=== PATIENT | female | born 1950 | race Caucasian/White ===

== ENCOUNTER → 2018-01-08 | Outpatient (CLI) | payer OTHER, MEDICARE | END | disposition home or self-care (01) | LOC: C.MAMM 14:32 | PROVIDERS: ATTEND Family Medicine | DX: Z78.0 Asymptomatic menopausal state (principal) ==

== ENCOUNTER → 2018-02-05 | Outpatient (CLI) | payer OTHER, MEDICARE ==
--- NOTE | 2018-02-06 07:22 | MAMMOGRAPHY REPORT ---
BILATERAL DIGITAL SCREENING MAMMOGRAM TOMOSYNTHESIS WITH CAD: 02/05/2018 CLINICAL HISTORY: Routine screening. Patient has no complaints. TECHNIQUE: Breast tomosynthesis in addition to standard 2D mammography was performed. Current study was also evaluated with a Computer Aided Detection (CAD) system. COMPARISON: Comparison is made to exams dated: 11/30/2015 mammogram - [facility], mammogram, 11/09/2012 mammogram, and 02/07/2011 mammogram - [facility]. BREAST COMPOSITION: The tissue of both breasts is heterogeneously dense, which may obscure small mas ses. FINDINGS: No suspicious masses, calcifications, or areas of architectural distortion are noted in ei ther breast. There has been no significant interval change compared to prior exams. Scattered bilater al benign-appearing calcifications are not significantly changed. Bilateral breast asymmetries are s table. IMPRESSION: ACR BI-RADS CATEGORY 2: BENIGN There is no mammographic evidence of malignancy. A 1 year screening mammogram is recommended. The pa tient will receive written notification of the results. Approximately 10% of breast cancers are not detected with mammography. A negative mammographic report should not delay biopsy if a clinically suggestive mass is present. Hilda Castillo M.D. ah/:02/05/2018 15:26:04 Senior Boiler Operator: Adriana LEÓN(Alejandra)([place])([place]), [facility] letter sent: Normal 1/2 BI-RADS Code: ACR BI-RADS Category 2: Benign
== END | disposition home or self-care (01) ==
LOC: C.MAMM 14:46
PROVIDERS: ATTEND Family Medicine
DX: Z12.31 Encounter for screening mammogram for malignant neoplasm of breast (principal)

== ENCOUNTER 2021-08-10 10:32 | Inpatient (IN) ==
--- NOTE | 2021-08-10 10:56 | Emergency Department Note ---
Impression & Plan Pulmonary edema, Hypoxia, Abnormal EKG ED Provider Note NAME: RADHA CASTELLANOS AGE: 70 SEX: F : 1950 ARRIVES VIA: Ambulance INFORMANT: Patient, EMS personnel ED PROVIDER(S): Desmond Osorio DO CHIEF COMPLAINT: shortness of breath HPI: the patient is a 70-year-old female who presented to the emergency department for an evaluation of shortness of breath. The patient is had worsening symptoms over the course the last eight months. She sometimes has a nonproductive cough. The shortness of breath is worsened with exertion. She denies having any orthopnea. She does note some slight swelling to her legs but this is not new. She denies having any chest pain. The patient is had no fever. She is fully immunized against COVID-19. She had a routine follow-up with her primary care physician today. She was telling her primary care physician about the shortness of breath. She was referred directly to the emergency department via ambulance for further evaluation. The patient was noted to have severe hypoxia prior to arrival. She was started on supplemental oxygen. She is had no fever. She is had no similar symptoms in the past. She does not currently use tobacco products. ROS: See above HPI for pertinent positives & negatives. A total of 10 systems reviewed and were otherwise negative. PAST MEDICAL HISTORY: See Below PAST SURGICAL HISTORY: See Below FAMILY HISTORY: See Below SOCIAL HISTORY: See Below HOME MEDICATIONS: See Below ALLERGIES: See Below VITALS: See Below PHYSICAL EXAMINATION: GENERAL: Patient is awake alert in no acute distress patient is resting comfortably and showing no signs of anxiety EYES: The conjunctivae are clear. The pupils are round and reactive. EARS, NOSE, MOUTH AND THROAT: The nose is without any evidence of any deformity. Mucous membranes are moist. Tongue is midline. NECK: The neck is nontender and supple. RESPIRATORY: diminished breath sounds are noted throughout. Rails were noted in all lung dillard. There was mild conversational dyspnea appreciated. CARDIOVASCULAR: Regular rate and rhythm noted there no murmurs rubs or gallops normal S1 normal S2. GASTROINTESTINAL: The abdomen is soft. Abdomen is nontender. MUSCULOSKELETAL/EXTREMITIES: There is no evidence of gross deformity full range of motion is noted in the hips and shoulders. SKIN: There is no obvious evidence of any rash. There are no petechiae, pallor or cyanosis noted. NEUROLOGIC: Patient is awake alert and oriented x3 strength is symmetric patellar reflexes are 2+ bilaterally MEDICAL DECISION MAKING: the patient is a 70-year-old female who presented to the emergency department for an evaluation of difficulty breathing. The patient has had exertional dyspnea over the course of the last eight months. She went to see her family doctor today for routine visit and was found to have significant hypoxia. The patient was relatively well appearing. EKG showed nonspecific abnormalities. Her cardiac biomarkers were elevated BMP were both elevated. Chest x-ray appear to be consistent with pulmonary edema. I discussed the patient's laboratory and radiographic studies with her. I also discussed her case with the on-call [facility]. They did recommend a CT of the chest to rule out venous pulmonary embolic disease. She also has an echo pending. Cardiology will also be consulted. Triage Nursing notes reviewed. Prior medical records reviewed Vital Signs: reviewed and remarkable for hypoxia and hypertension. Differential diagnosis: Reactive airway disease, pneumonia, pneumothorax, COPD, CHF, infections, cardiac ischemia, pulmonary embolism, musculoskeletal, gastrointestinal, as well as other pathologies. ER treatment provided: See below Diagnostics interpreted by me: ECG: EKG was obtained in the emergency department. My interpretation is sinus tachycardia 104 bpm. There was no activity. Diffuse ST depressions were noted. Incomplete right bundle branch block pattern was also appreciated. No previous duration was available. Cardiac Monitoring: An order was placed for continuous cardiac monitoring. The monitor shows a rate of 99 bpm with sinus rhythm. Laboratory studies: As stated above and show below. Imaging studies: See below Consultation(s): I discussed this case with the on-call [facility], Dr. Clark. They have agreed to evaluate the patient in the emergency department for further management and disposition. Past Med/Surg History Medical History (Updated 08/10/21 @ 15:52 by Desmond Osorio DO) Acid reflux Dyslipidemia Hypertension Panic disorder T2DM (type 2 diabetes mellitus) Surgical History S/P cholecystectomy S/P tonsillectomy Family History Mother Breast cancer Grandfather (Maternal) Myocardial infarction Denies family history of Ovarian cancer Prostate cancer Lung cancer Colorectal cancer Social History (Updated 08/10/21 @ 10:54 by Desmond Osorio DO) Smoking Status: Former smoker Age Started Using Tobacco: 22; Age Quit Using Tobacco: 24; Second Hand Exposure: No; Hx Alcohol Use: Yes Alcohol type: beer Alcohol Intake Frequency: 2-4 x/Month Hx Substance Use: No Preferred Language: Yakut Communication Ability: Effective Visual Impairment: No Limitations Hearing Ability: Normal Beliefs That Will Affect Care: None marital status: / Current Living Situation: Alone current occupational status: employed 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 Feels Safe at Home: Yes Childhood Exposure to Second-Hand Smoke: No Diet Comment: regular caffeine: Yes (2 cups coffee / half caffeine) Dental Care, Regularly: Yes Physical Activity Frequency: 3-4 Times per Week Physical Activity Frequency Comment: walking Seatbelt Use: always Sunscreen Use: Yes Allergies Allergies Allergy/AdvReac Type Severity Reaction Status Date / Time epinephrine AdvReac Rash Verified 08/10/21 14:38 Penicillins AdvReac Fever Verified 08/10/21 14:38 Sulfa (Sulfonamide AdvReac Rash Verified 08/10/21 14:38 Antibiotics) Codeine SULFATE AdvReac NIGHTMARES Uncoded 08/10/21 14:38 Home Meds Home Medications Medication Instructions Recorded Confirmed atorvastatin 20 mg tablet 20 mg PO QPM 08/10/21 08/10/21 hydrochlorothiazide 12.5 mg capsule 12.5 mg PO QPM 08/10/21 08/10/21 losartan 50 mg tablet 50 mg PO QPM 08/10/21 08/10/21 omeprazole 20 mg capsule,delayed 20 mg PO QPM 08/10/21 08/10/21 release paroxetine HCl 20 mg tablet 20 mg PO QPM 08/10/21 08/10/21 Results & Data (ED) Vital Signs Vital Signs - 24 hr 08/10/21 10:42 08/10/21 10:46 08/10/21 11:37 Pulse Rate 108 H 99 H Pulse Rhythm Regular Respiratory Rate 28 H 20 Respiratory Effort / Characteristics Spontaneous Retracting Spontaneous Respiratory Depth Shallow Respiratory Pattern Tachypnea Tachypnea Blood Pressure 140/107 H Blood Pressure Mean 118 Pulse Oximetry 72 L 96 Oxygen Delivery Method Room Air Room Air Nasal Cannula Oxygen Flow Rate 4 Sepsis Recent Fever Within 48 Hours No Sepsis New/Unexplained Change in Mental Status N/A Sepsis Action Taken by Nursing Physician Notified Home Medications Current Medication List: was personally reviewed by me Laboratory Data Attestation: I reviewed the patient's lab results. Result diagrams: 08/10/21 11:53 08/10/21 11:53 Lab Results 08/10/21 08/10/21 08/10/21 Range/Units 10:59 10:59 11:53 WBC 9.62 (4.8-10.8) K/uL RBC 4.96 (4.2-5.4) M/uL Hgb 15.3 (12.0-16.0) g/dL Hct 45.8 (37-47) % MCV 92.3 (80-100) fL MCH 30.8 (25-34) pg MCHC 33.4 (32-36) g/dL RDW Std Deviation 54.4 H (36.4-46.3) fL RDW Coeff of Raz 16.3 H (11.5-14.5) % Plt Count 241 (130-400) K/uL MPV 10.2 (7.4-10.4) fL Immature Gran % (Auto) 0.1 % Neut % (Auto) 78.0 % Lymph % (Auto) 12.1 % [place] % (Auto) 8.8 % Eos % (Auto) 0.9 % Baso % (Auto) 0.1 % Neut # (Auto) 7.50 H (1.4-6.5) K/uL Lymph # (Auto) 1.16 L (1.2-3.4) K/uL [place] # (Auto) 0.85 H (0.11-0.59) K/uL Eos # (Auto) 0.09 (0-0.5) K/uL Baso # (Auto) 0.01 (0-0.2) K/uL Immature Gran # (Auto) 0.01 (0.00-0.02) K/uL ESR (0-30) mm/hr PT (9.0-12.0) Seconds INR (0.9-1.1) APTT (21.0-31.0) Seconds PTT Ratio D-Dimer (0-500) ug/L FEU Sodium (136-145) mmol/L Potassium (3.5-5.1) mmol/L Chloride (98-107) mmol/L Carbon Dioxide (21-32) mmol/L Anion Gap (3-11) BUN (7-18) mg/dl Creatinine (0.6-1.2) mg/dl Est Cr Clr Drug Dosing ml/min Est GFR ( Amer) ml/min Est GFR (Non-Af Amer) ml/min BUN/Creatinine Ratio (10-20) Glucose (70-99) mg/dl Lactate (0.4-2.0) mmol/L Calcium (8.5-10.1) mg/dl Magnesium (1.8-2.4) mg/dl Total Bilirubin (0.2-1) mg/dl AST (15-37) U/L ALT (12-78) U/L Alkaline Phosphatase (45-117) U/L Troponin I (0-0.045) ng/ml C-Reactive Protein (0-0.29) mg/dl NT-Pro-B Natriuret Pep (0-900) pg/ml Total Protein (6.4-8.2) gm/dl Albumin (3.4-5.0) gm/dl Globulin (2.5-4.0) gm/dl Albumin/Globulin Ratio (0.9-2) Procalcitonin (0-0.5) ng/ml Adenovirus (PCR) (NotDetected) B. pertussis DNA (PCR) (NotDetected) B.parapertussis DNA PCR (NotDetected) C. pneumoniae DNA (PCR) (NotDetected) Coronavirus OC43 (PCR) (NotDetected) Coronavirus HKU1 (PCR) (NotDetected) Coronavirus 229E (PCR) (NotDetected) COVID-19 Eval Order Covid19 at [facility] SARS-CoV-2 (PCR) NEGATIVE (Negative) Coronavirus NL63 (PCR) (NotDetected) Human Metapneumovir PCR (NotDetected) Influenza Type A (PCR) (NotDetected) Influenza Type B (PCR) (NotDetected) M. pneumoniae (PCR) (NotDetected) Parainfluenza 1 (PCR) (NotDetected) Parainfluenza 2 (PCR) (NotDetected) Parainfluenza 3 (PCR) (NotDetected) Parainfluenza 4 (PCR) (NotDetected) RSV (PCR) (NotDetected) Entero/Rhino (PCR) (NotDetected) 08/10/21 08/10/21 08/10/21 Range/Units 11:53 11:53 11:53 WBC (4.8-10.8) K/uL RBC (4.2-5.4) M/uL Hgb (12.0-16.0) g/dL Hct (37-47) % MCV (80-100) fL MCH (25-34) pg MCHC (32-36) g/dL RDW Std Deviation (36.4-46.3) fL RDW Coeff of Raz (11.5-14.5) % Plt Count (130-400) K/uL MPV (7.4-10.4) fL Immature Gran % (Auto) % Neut % (Auto) % Lymph % (Auto) % [place] % (Auto) % Eos % (Auto) % Baso % (Auto) % Neut # (Auto) (1.4-6.5) K/uL Lymph # (Auto) (1.2-3.4) K/uL [place] # (Auto) (0.11-0.59) K/uL Eos # (Auto) (0-0.5) K/uL Baso # (Auto) (0-0.2) K/uL Immature Gran # (Auto) (0.00-0.02) K/uL ESR 20 (0-30) mm/hr PT 11.7 (9.0-12.0) Seconds INR 1.2 H (0.9-1.1) APTT 25.0 (21.0-31.0) Seconds PTT Ratio 1.0 D-Dimer 790 H* (0-500) ug/L FEU Sodium 140 (136-145) mmol/L Potassium 3.4 L (3.5-5.1) mmol/L Chloride 106 (98-107) mmol/L Carbon Dioxide 27 (21-32) mmol/L Anion Gap 7.0 (3-11) BUN 29 H (7-18) mg/dl Creatinine 1.34 H (0.6-1.2) mg/dl Est Cr Clr Drug Dosing 43.2 ml/min Est GFR ( Amer) 45.8 ml/min Est GFR (Non-Af Amer) 39.5 ml/min BUN/Creatinine Ratio 21.9 H (10-20) Glucose 97 (70-99) mg/dl Lactate (0.4-2.0) mmol/L Calcium 8.3 L (8.5-10.1) mg/dl Magnesium 1.3 L (1.8-2.4) mg/dl Total Bilirubin 1.1 H (0.2-1) mg/dl AST 33 (15-37) U/L ALT 42 (12-78) U/L Alkaline Phosphatase 126 H (45-117) U/L Troponin I 0.027 (0-0.045) ng/ml C-Reactive Protein 0.43 H (0-0.29) mg/dl NT-Pro-B Natriuret Pep 2427 H (0-900) pg/ml Total Protein 7.3 (6.4-8.2) gm/dl Albumin 3.2 L (3.4-5.0) gm/dl Globulin 4.1 H (2.5-4.0) gm/dl Albumin/Globulin Ratio 0.8 L (0.9-2) Procalcitonin (0-0.5) ng/ml Adenovirus (PCR) (NotDetected) B. pertussis DNA (PCR) (NotDetected) B.parapertussis DNA PCR (NotDetected) C. pneumoniae DNA (PCR) (NotDetected) Coronavirus OC43 (PCR) (NotDetected) Coronavirus HKU1 (PCR) (NotDetected) Coronavirus 229E (PCR) (NotDetected) COVID-19 Eval Order SARS-CoV-2 (PCR) (Negative) Coronavirus NL63 (PCR) (NotDetected) Human Metapneumovir PCR (NotDetected) Influenza Type A (PCR) (NotDetected) Influenza Type B (PCR) (NotDetected) M. pneumoniae (PCR) (NotDetected) Parainfluenza 1 (PCR) (NotDetected) Parainfluenza 2 (PCR) (NotDetected) Parainfluenza 3 (PCR) (NotDetected) Parainfluenza 4 (PCR) (NotDetected) RSV (PCR) (NotDetected) Entero/Rhino (PCR) (NotDetected) 08/10/21 08/10/21 08/10/21 Range/Units 12:03 12:03 14:08 WBC (4.8-10.8) K/uL RBC (4.2-5.4) M/uL Hgb (12.0-16.0) g/dL Hct (37-47) % MCV (80-100) fL MCH (25-34) pg MCHC (32-36) g/dL RDW Std Deviation (36.4-46.3) fL RDW Coeff of Raz (11.5-14.5) % Plt Count (130-400) K/uL MPV (7.4-10.4) fL Immature Gran % (Auto) % Neut % (Auto) % Lymph % (Auto) % [place] % (Auto) % Eos % (Auto) % Baso % (Auto) % Neut # (Auto) (1.4-6.5) K/uL Lymph # (Auto) (1.2-3.4) K/uL [place] # (Auto) (0.11-0.59) K/uL Eos # (Auto) (0-0.5) K/uL Baso # (Auto) (0-0.2) K/uL Immature Gran # (Auto) (0.00-0.02) K/uL ESR (0-30) mm/hr PT (9.0-12.0) Seconds INR (0.9-1.1) APTT (21.0-31.0) Seconds PTT Ratio D-Dimer (0-500) ug/L FEU Sodium (136-145) mmol/L Potassium (3.5-5.1) mmol/L Chloride (98-107) mmol/L Carbon Dioxide (21-32) mmol/L Anion Gap (3-11) BUN (7-18) mg/dl Creatinine (0.6-1.2) mg/dl Est Cr Clr Drug Dosing ml/min Est GFR ( Amer) ml/min Est GFR (Non-Af Amer) ml/min BUN/Creatinine Ratio (10-20) Glucose (70-99) mg/dl Lactate 1.7 (0.4-2.0) mmol/L Calcium (8.5-10.1) mg/dl Magnesium (1.8-2.4) mg/dl Total Bilirubin (0.2-1) mg/dl AST (15-37) U/L ALT (12-78) U/L Alkaline Phosphatase (45-117) U/L Troponin I (0-0.045) ng/ml C-Reactive Protein (0-0.29) mg/dl NT-Pro-B Natriuret Pep (0-900) pg/ml Total Protein (6.4-8.2) gm/dl Albumin (3.4-5.0) gm/dl Globulin (2.5-4.0) gm/dl Albumin/Globulin Ratio (0.9-2) Procalcitonin < 0.05 (0-0.5) ng/ml Adenovirus (PCR) (NotDetected) B. pertussis DNA (PCR) (NotDetected) B.parapertussis DNA PCR (NotDetected) C. pneumoniae DNA (PCR) (NotDetected) Coronavirus OC43 (PCR) (NotDetected) Coronavirus HKU1 (PCR) (NotDetected) Coronavirus 229E (PCR) (NotDetected) COVID-19 Eval Order RESPNP at [facility] SARS-CoV-2 (PCR) (Negative) Coronavirus NL63 (PCR) (NotDetected) Human Metapneumovir PCR (NotDetected) Influenza Type A (PCR) (NotDetected) Influenza Type B (PCR) (NotDetected) M. pneumoniae (PCR) (NotDetected) Parainfluenza 1 (PCR) (NotDetected) Parainfluenza 2 (PCR) (NotDetected) Parainfluenza 3 (PCR) (NotDetected) Parainfluenza 4 (PCR) (NotDetected) RSV (PCR) (NotDetected) Entero/Rhino (PCR) (NotDetected) 08/10/21 Range/Units 14:08 WBC (4.8-10.8) K/uL RBC (4.2-5.4) M/uL Hgb (12.0-16.0) g/dL Hct (37-47) % MCV (80-100) fL MCH (25-34) pg MCHC (32-36) g/dL RDW Std Deviation (36.4-46.3) fL RDW Coeff of Raz (11.5-14.5) % Plt Count (130-400) K/uL MPV (7.4-10.4) fL Immature Gran % (Auto) % Neut % (Auto) % Lymph % (Auto) % [place] % (Auto) % Eos % (Auto) % Baso % (Auto) % Neut # (Auto) (1.4-6.5) K/uL Lymph # (Auto) (1.2-3.4) K/uL [place] # (Auto) (0.11-0.59) K/uL Eos # (Auto) (0-0.5) K/uL Baso # (Auto) (0-0.2) K/uL Immature Gran # (Auto) (0.00-0.02) K/uL ESR (0-30) mm/hr PT (9.0-12.0) Seconds INR (0.9-1.1) APTT (21.0-31.0) Seconds PTT Ratio D-Dimer (0-500) ug/L FEU Sodium (136-145) mmol/L Potassium (3.5-5.1) mmol/L Chloride (98-107) mmol/L Carbon Dioxide (21-32) mmol/L Anion Gap (3-11) BUN (7-18) mg/dl Creatinine (0.6-1.2) mg/dl Est Cr Clr Drug Dosing ml/min Est GFR ( Amer) ml/min Est GFR (Non-Af Amer) ml/min BUN/Creatinine Ratio (10-20) Glucose (70-99) mg/dl Lactate (0.4-2.0) mmol/L Calcium (8.5-10.1) mg/dl Magnesium (1.8-2.4) mg/dl Total Bilirubin (0.2-1) mg/dl AST (15-37) U/L ALT (12-78) U/L Alkaline Phosphatase (45-117) U/L Troponin I (0-0.045) ng/ml C-Reactive Protein (0-0.29) mg/dl NT-Pro-B Natriuret Pep (0-900) pg/ml Total Protein (6.4-8.2) gm/dl Albumin (3.4-5.0) gm/dl Globulin (2.5-4.0) gm/dl Albumin/Globulin Ratio (0.9-2) Procalcitonin (0-0.5) ng/ml Adenovirus (PCR) Not Detected (NotDetected) B. pertussis DNA (PCR) Not Detected (NotDetected) B.parapertussis DNA PCR Not Detected (NotDetected) C. pneumoniae DNA (PCR) Not Detected (NotDetected) Coronavirus OC43 (PCR) Not Detected (NotDetected) Coronavirus HKU1 (PCR) Not Detected (NotDetected) Coronavirus 229E (PCR) Not Detected (NotDetected) COVID-19 Eval Order SARS-CoV-2 (PCR) Not Detected (Negative) Coronavirus NL63 (PCR) Not Detected (NotDetected) Human Metapneumovir PCR Not Detected (NotDetected) Influenza Type A (PCR) Not Detected (NotDetected) Influenza Type B (PCR) Not Detected (NotDetected) M. pneumoniae (PCR) Not Detected (NotDetected) Parainfluenza 1 (PCR) Not Detected (NotDetected) Parainfluenza 2 (PCR) Not Detected (NotDetected) Parainfluenza 3 (PCR) Not Detected (NotDetected) Parainfluenza 4 (PCR) Not Detected (NotDetected) RSV (PCR) Not Detected (NotDetected) Entero/Rhino (PCR) Not Detected (NotDetected) Administered Medications Magnesium Sulfate/Dextrose (Magnesium Sulfate / D5w) 1 gm in 100 mls @ 50 mls/hr IV ONE ONE Stop: 08/10/21 16:32 Last Admin: 08/10/21 15:06 Dose: 50 mls/hr Documented by: [id number] Discontinued Medications Furosemide (Furosemide 40 Mg/4 Ml Vial) 20 mg IV NOW STA Stop: 08/10/21 14:34 Last Admin: 08/10/21 15:06 Dose: 20 mg Documented by: [id number] Ioversol (Optiray 320 125ml) 120 ml IV ONCE ONE Stop: 08/10/21 13:19 Last Admin: 08/10/21 13:18 Dose: 120 ml Documented by: [id number] Magnesium Oxide (Magnesium Oxide 400 Mg Tab) 400 mg PO ONE STA Stop: 08/10/21 14:34 Last Admin: 08/10/21 15:05 Dose: 400 mg Documented by: [id number] Potassium Chloride (Potassium Chloride Crtab 20 Meq Tabcr) 40 meq PO NOW STA Stop: 08/10/21 14:34 Last Admin: 08/10/21 15:05 Dose: 40 meq Documented by: [id number] Imaging Data Radiologist's Impression: Chest X-Ray 08/10/21 10:40 SINGLE VIEW CHEST CLINICAL HISTORY: Sepsis. FINDINGS: An AP, portable, upright chest radiograph is obtained. No prior studies are available for comparison at the time of dictation. The heart is enlarged noting atherosclerotic calcification of the thoracic aorta. There is elevation of the right hemidiaphragm. Ill-defined airspace opacities are seen throughout both lungs. No large pleural effusion or pneumothorax is seen. The skeletal structures are osteopenic. The bony thorax is grossly intact. IMPRESSION: 1. Cardiomegaly. 2. Ill-defined airspace opacities are seen throughout both lungs and likely represent multifocal pneumonia. Pulmonary edema could appear similar and clinical correlation will be required. Radiographic follow-up to resolution is recommended. ACT 112: Negative or not required by law. Electronically signed by: Marco Jones M.D. 08/10/2021 11:08 AM Chest CTA 08/10/21 12:59 CHEST CTA for PULMONARY ARTERIES CT DOSE: 508.79 mGy.cm HISTORY: Shortness of breath. TECHNIQUE: Multiaxial CT images of the chest were performed following the int ravenous administration of contrast to evaluate the pulmonary arteries. Maximal intensity projection images were also obtained. A dose lowering technique was utilized adhering to the principles of ALARA. COMPARISON STUDY: None. FINDINGS: Normal caliber thoracic aorta with no evidence for dissection. The heart is moderately enlarged. There is a small pericardial effusion. No significant pleural effusions. Mild mediastinal bilateral hilar lymphadenopathy. Dominant right hilar lymph node measures 12 mm. There are low lung volumes with elevation of the right hemidiaphragm. Limited views of the upper abdomen demonstrate a normal liver and spleen. Prior cholecystectomy. Normal esophagus. No filling defects within the pulmonary arteries to suggest a pulmonary embolus. No fractures within the visualized osseous structures. The central airways are patent. No pneumothorax. There is diffuse interstitial thickening with scattered near diffuse groundglass airspace opacities. These demonstrate an upper lobe predominance. IMPRESSION: 1. No evidence for pulmonary embolus. 2. There is diffuse interstitial thickening with near diffuse groundglass airspace opacities demonstrating an upper lobe predominance. There is also mild mediastinal and bilateral hilar lymphadenopathy as well as moderate cardiomegaly. These findings are nonspecific but favor an acute on chronic process such as mild pulmonary edema on the background of chronic interstitial lung disease. A superimposed atypical/viral pneumonia or possibly sarcoidosis could also have a similar appearance. 3. Small pericardial effusion. ACT 112: Negative or not required by law. Electronically signed by: Rajan Liu M.D. 08/10/2021 1:59 PM Discharge Plan Visit Data Chief Complaint: Respiratory Problems Stated Complaint: SOB Hypoxia ED Provider: Desmond Osorio Discharge Problem: Pulmonary edema, Hypoxia, Abnormal EKG Patient Disposition: Admitted As Inpatient Condition: Good Forms Stand Alone Forms: [facility] Prescriptions Prescriptions: No Action Fluzone HighDose Quad 21-22 PF 240 mcg/0.7 mL syringe 0.7 ml IM ONCE Qty: 0.7 RF: 0 losartan 50 mg tablet 50 mg PO QPM RF: 0 atorvastatin 20 mg tablet 20 mg PO QPM RF: 0 paroxetine HCl 20 mg tablet 20 mg PO QPM RF: 0 hydrochlorothiazide 12.5 mg capsule 12.5 mg PO QPM RF: 0 omeprazole 20 mg capsule,delayed release(DR/EC) 20 mg PO QPM RF: 0 Referrals Referrals: Tiffanie Albarado DO [Primary Care Provider] -
--- NOTE | 2021-08-10 11:09 | XRay Report ---
SINGLE VIEW CHEST CLINICAL HISTORY: Sepsis. FINDINGS: An AP, portable, upright chest radiograph is obtained. No prior studies are available for c omparison at the time of dictation. The heart is enlarged noting atherosclerotic calcification of the thoracic aorta. There is elevation of the right hemidiaphragm. Ill-defined airspace opacities are se en throughout both lungs. No large pleural effusion or pneumothorax is seen. The skeletal structures are osteopenic. The bony thorax is grossly intact. IMPRESSION: 1. Cardiomegaly. 2. Ill-defined airspace opacities are seen throughout both lungs and likely represent multifocal pneu monia. Pulmonary edema could appear similar and clinical correlation will be required. Radiographic f ollow-up to resolution is recommended. ACT 112: Negative or not required by law. Electronically signed by: Marco Jones M.D. 08/10/2021 11:08 AM
[2021-08-10 12:11] LABS: Basophils # (auto) 0.01 K/uL (0-0.2); Basophils % (auto) 0.1 %; Eosinophils # (auto) 0.09 K/uL (0-0.5); Eosinophils % (auto) 0.9 %; Hematocrit (blood only) 45.8 % (37-47); Hemoglobin 15.3 g/dL (12.0-16.0); Immature Granulocytes # (auto) 0.01 K/uL (0.00-0.02); Immature Granulocytes % (auto) 0.1 %; Lymphocytes # (auto) 1.16 K/uL (1.2-3.4); Lymphocytes % (auto) 12.1 %; Mean Corpuscular Hemoglobin 30.8 pg (25-34); Mean Corpuscular Hgb Conc 33.4 g/dL (32-36); Mean Corpuscular Volume 92.3 fL (80-100); Mean Platelet Volume 10.2 fL (7.4-10.4); Monocytes # (auto) 0.85 K/uL (0.11-0.59); Monocytes % (auto) 8.8 %; Platelet Count 241 K/uL (130-400); RDW Coefficient of Variation 16.3 % (11.5-14.5); RDW Standard Deviation 54.4 fL (36.4-46.3); Red Blood Count 4.96 M/uL (4.2-5.4); White Blood Count 9.62 K/uL (4.8-10.8)
[2021-08-10 12:22] LABS: INR 1.2 (0.9-1.1); Prothrombin Time 11.7 Seconds (9.0-12.0)
[2021-08-10 12:24] LABS: D Dimer 790 ug/L FEU (0-500)
[2021-08-10 12:28] LABS: Albumin Level 3.2 gm/dl (3.4-5.0); BUN Creatinine Ratio 21.9 (10-20); Calcium 8.3 mg/dl (8.5-10.1); Creatinine Clr Calc Pharmacy 43.2 ml/min; Est GFR (African American) 45.8 ml/min; Est GFR (Non-African American) 39.5 ml/min; Magnesium 1.3 mg/dl (1.8-2.4); Potassium 3.4 mmol/L (3.5-5.1)
[2021-08-10 12:33] LABS: Albumin Globulin Ratio 0.8 (0.9-2); Bilirubin,Total 1.1 mg/dl (0.2-1); C Reactive Protein 0.43 mg/dl (0-0.29); Globulin 4.1 gm/dl (2.5-4.0); Total Protein 7.3 gm/dl (6.4-8.2); Troponin I 0.027 ng/ml (0-0.045)
--- NOTE | 2021-08-10 12:54 | History & Physical Report ---
Date of Service August 10, 2021 Assessment & Plan (1) Pulmonary edema: Plan: Lasix 20mg IV now Strict I&Os Daily weights TTE to assess for cardiomyopathy (2) Viral pneumonia: Plan: Suspected given recent viral illness which may have pushed underlying CHF worse. Suspect not COVID as PCR negative and low CRP, lymphocyte count > 1 would be unusual given degree of hypoxia even in vaccinated individual. Will get Biofire to assess for alternative cause however. Urine legionella Procalcitonin negative but possibly has atypical pneumonia and could consider azithromycin depending on biofire results and TTE results above. (3) Hypoxia: Plan: Aim O2 > 94% Suspect undiagnosed chronic CHF and possible viral pneumonia making her much w orse this week. (4) Acid reflux: Plan: Switch omeprazole for pantoprazole per hospital formulary (5) T2DM (type 2 diabetes mellitus): Plan: On no medication for this. HbA1C 6.9 in January. Repeat HbA1C in AM Glucose 97 ?high glycosalator (6) Dyslipidemia: Plan: Continue atorvastatin 20mg PO HS (7) Hypertension: Plan: Hold HCTZ while diuresing as above (8) Abnormal EKG: Plan: Troponin negative on admission and no acute worsening within last 24 hours ther efore no need to repeat this. Plan: VTE Prophyalxis - Lovenox 40mg SQ daily Diet - heart healthy, Low Na, Fluid restrict 1500ml Disposition - admit to med/tele Admission and Anticipated Discharge Date Admission Date: August 10, 2021 History of Present Illness Chief Complaint: Shortness of breath, hypoxia Primary Care Provider: DO Beatriz Em is a 70 year old female who presents to the ER on the advice of her PCP due to shortness of breath. She reports progressively worsening symptoms especially on exertion for the last 8 months (prior to having COVID-19 vaccine) with associated fatigue. 4 days ago she started having a diarrheal illness with nausea, no abdominal pain with associated progression of her short of breath on exertion. She denies any weight gain, orthopnea, PND, worsening leg swelling or claudication. She is a non-smoker. On visiting her PCP today she was noted to be significantly hypoxic therefore was referred to the ER for ongoing management. In the ER CXR was consistent with viral pneumonia. SARS-COV-2 PCR negative. Allergies Allergy/AdvReac Type Severity Reaction Status Date / Time epinephrine AdvReac Rash Verified 08/10/21 14:38 Penicillins AdvReac Fever Verified 08/10/21 14:38 Sulfa (Sulfonamide AdvReac Rash Verified 08/10/21 14:38 Antibiotics) Codeine SULFATE AdvReac NIGHTMARES Uncoded 08/10/21 14:38 Home Medications Medication Instructions Recorded Confirmed Type atorvastatin 20 mg tablet 20 mg PO QPM 08/10/21 08/10/21 History hydrochlorothiazide 12.5 mg capsule 12.5 mg PO QPM 08/10/21 08/10/21 History losartan 50 mg tablet 50 mg PO QPM 08/10/21 08/10/21 History omeprazole 20 mg capsule,delayed 20 mg PO QPM 08/10/21 08/10/21 History release paroxetine HCl 20 mg tablet 20 mg PO QPM 08/10/21 08/10/21 History Past Med/Surg History Medical History Acid reflux Dyslipidemia Hypertension Panic disorder T2DM (type 2 diabetes mellitus) Surgical History S/P cholecystectomy S/P tonsillectomy Family History Mother Breast cancer Grandfather (Maternal) Myocardial infarction Denies family history of Ovarian cancer Prostate cancer Lung cancer Colorectal cancer Social History Smoking Status: Never smoker Age Started Using Tobacco: 22; Age Quit Using Tobacco: 24; Second Hand Exposure: No; Hx Alcohol Use: No Hx Substance Use: No Preferred Language: Tamazight Communication Ability: Effective Visual Impairment: No Limitations Hearing Ability: Normal Beliefs That Will Affect Care: None marital status: / Current Living Situation: Alone Current Living Situation Comment: lives in home with dogs current occupational status: employed current occupation: [employer] Other Information That Helps Us Care for You: No Feels Safe at Home: Yes Safety Concerns: Feels Safe At This Time Childhood Exposure to Second-Hand Smoke: No Diet Comment: regular caffeine: Yes (2 cups coffee / half caffeine) Dental Care, Regularly: Yes Physical Activity Frequency: 3-4 Times per Week Physical Activity Frequency Comment: walking Seatbelt Use: always Sunscreen Use: Yes Assistive Devices: Glasses Review of Systems Review of Systems: All systems reviewed & are unremarkable except as noted in HPI & below Physical Exam Constitutional: WD/WN, vitals as above Eyes: PERRL, conjunctivae normal, anicteric sclerae ENMT: external ear and nose normal, oropharynx normal Respiratory: normal respiratory effort and able to speak in complete sentences; no respiratory distress, no labored breathing, no retractions, does not use accessory muscles and no cough Auscultation: + crackles (fine posteriorly throughout) Cardiovascular: Rate/Rhythm: regular rate and regular rhythm Heart Sounds: no murmur Vessels: + JVD Extremities: normal capillary refill and + pedal edema (1+ pre-tibial); no calf tenderness Gastrointestinal (Abdomen): normal bowel sounds, soft, nontender, no hepatosplenomegaly Musculoskeletal: no cyanosis or clubbing, extremities motor strength 5/5 Skin: no rashes, warm and dry Neurologic: moves all extremities and awake; not confused Psychiatric: A+Ox3, euthymic affect Lymphatic: no cervical or axillary lymphadenopathy Results & Data Results & Data ([facility]) Vital Signs (Past 12 Hours) Vital Signs Pulse Resp BP Pulse Ox 08/10/21 11:37 99 H 20 96 08/10/21 10:42 108 H 28 H 140/107 H 72 L Diagnostic Findings SINGLE VIEW CHEST CLINICAL HISTORY: Sepsis. FINDINGS: An AP, portable, upright chest radiograph is obtained. No prior studies are available for comparison at the time of dictation. The heart is enlarged noting atherosclerotic calcification of the thoracic aorta. There is elevation of the right hemidiaphragm. Ill-defined airspace opacities are seen throughout both lungs. No large pleural effusion or pneumothorax is seen. The skeletal structures are osteopenic. The bony thorax is grossly intact. IMPRESSION: 1. Cardiomegaly. 2. Ill-defined airspace opacities are seen throughout both lungs and likely represent multifocal pneumonia. Pulmonary edema could appear similar and clinical correlation will be required. Radiographic follow-up to resolution is recommended. Medications Administered ER medications given: None ECG Indication: SOB/dyspnea Rate (beats per minute): 104 Rhythm: sinus tachycardia Findings: + other (Right ventricular hypertrophy with repolarization abnormality, TW flattening) Comparison ECG Date: no prior available Code Status & VTE Plan Code Status Full VTE Prophylaxis Plan VTE Prophylaxis will be ordered: Yes PG Care Time/CCT Total # of Minutes Spent Total Time Spent with Patient: Total time spent is greater than 50% in coordination of care (as documented) at patient's floor/unit and/or counseling patient: Coding Level of Care Code 41912 Initial Inpt Care Lvl 3 Diagnoses Acid reflux K21.9 T2DM (type 2 diabetes mellitus) E11.9 Dyslipidemia E78.5 Hypertension I10 Viral pneumonia J12.9 Pulmonary edema J81.0 Chronicity: acute Hypoxia R09.02 Abnormal EKG R94.31 (1) Pulmonary edema Chronicity: acute Qualified Code(s): J81.0 - Acute pulmonary edema
[2021-08-10] MEDS ORDERED: OPTIRAY 320 125ml IV ONE (13:18)
--- NOTE | 2021-08-10 14:01 | CT Scan Report ---
CHEST CTA for PULMONARY ARTERIES CT DOSE: 508.79 mGy.cm HISTORY: Shortness of breath. TECHNIQUE: Multiaxial CT images of the chest were performed following the intravenous administration of contrast to evaluate the pulmonary arteries. Maximal intensity projection images were also obtaine d. A dose lowering technique was utilized adhering to the principles of ALARA. COMPARISON STUDY: None. FINDINGS: Normal caliber thoracic aorta with no evidence for dissection. The heart is moderately enla rged. There is a small pericardial effusion. No significant pleural effusions. Mild mediastinal bilat eral hilar lymphadenopathy. Dominant right hilar lymph node measures 12 mm. There are low lung volume s with elevation of the right hemidiaphragm. Limited views of the upper abdomen demonstrate a normal liver and spleen. Prior cholecystectomy. Normal esophagus. No filling defects within the pulmonary ar teries to suggest a pulmonary embolus. No fractures within the visualized osseous structures. The darrell tral airways are patent. No pneumothorax. There is diffuse interstitial thickening with scattered rubi r diffuse groundglass airspace opacities. These demonstrate an upper lobe predominance. IMPRESSION: 1. No evidence for pulmonary embolus. 2. There is diffuse interstitial thickening with near diffuse groundglass airspace opacities demonstr ating an upper lobe predominance. There is also mild mediastinal and bilateral hilar lymphadenopathy as well as moderate cardiomegaly. These findings are nonspecific but favor an acute on chronic proces s such as mild pulmonary edema on the background of chronic interstitial lung disease. A superimposed atypical/viral pneumonia or possibly sarcoidosis could also have a similar appearance. 3. Small pericardial effusion. ACT 112: Negative or not required by law. Electronically signed by: Rajan Liu M.D. 08/10/2021 1:59 PM
[2021-08-10] MEDS ORDERED: POTASSIUM CHLORIDE CRTAB 20 MEQ TABCR PO STA (14:33)
[2021-08-10] MEDS ORDERED: FUROSEMIDE 40 MG/4 ML VIAL IV STA (14:33)
[2021-08-10] MEDS ORDERED: MAGNESIUM OXIDE 400 MG TAB PO STA (14:33)
[2021-08-10] MEDS ORDERED: MAGNESIUM SULFATE / D5W 1 GM/100 ML BAG IV ONE ×2 (14:33→22:00)
[2021-08-10 15:43] LABS: Adenovirus PCR Not Detected (NotDetected); Bordetella parapertussis PCR Not Detected (NotDetected); Bordetella pertussis PCR Not Detected (NotDetected); Chlamydia pneumoniae PCR Not Detected (NotDetected); Coronavirus 229E PCR Not Detected (NotDetected); Coronavirus CoV-2 (COVID19)PCR Not Detected (NotDetected); Coronavirus HKU1 PCR Not Detected (NotDetected); Coronavirus NL63 PCR Not Detected (NotDetected); Coronavirus OC43PCR Not Detected (NotDetected); Human Metapneumovirus PCR Not Detected (NotDetected); Influenza A PCR Not Detected (NotDetected); Influenza B PCR Not Detected (NotDetected); Mycoplasma pneumoniae PCR Not Detected (NotDetected); Parainfluenza Virus 1 PCR Not Detected (NotDetected); Parainfluenza Virus 2 PCR Not Detected (NotDetected); Parainfluenza Virus 3 PCR Not Detected (NotDetected); Parainfluenza Virus 4 PCR Not Detected (NotDetected); Respiratory Syncytial VirusPCR Not Detected (NotDetected); Rhinovirus/Enterovirus PCR Not Detected (NotDetected)
[2021-08-10] MEDS ORDERED: ONDANSETRON INJ 2 MG/ML 2 ML VIAL IV PRN (16:14)
[2021-08-10] MEDS ORDERED: ACETAMINOPHEN 325 MG TAB PO PRN (16:14)
[2021-08-10] MEDS ORDERED: POLYETHYLENE (MIRALAX) 17 GM PACK PO PRN (16:14)
[2021-08-10 16:38] LABS: Appearance Urine Clear (Clear); Bacteria Urine Automated Negative (Negative); Bilirubin Urine Negative (Negative); Blood Urine Negative (Negative); Cast Urine Automated 0 /lpf (0-5); Color Urine Yellow; Epithelial Cell Urine Auto 0-5 /lpf (0-5); Glucose Urine UA Negative (Negative); Ketones Urine Negative (Negative); Leukocyte Esterase Urine Trace (Negative); Nitrite Urine Negative (Negative); Protein Urine Negative (Negative); RBC Urine Automated 0-4 /hpf (0-4); Specific Gravity Urine 1.022 (1.000-1.030); Urobilinogen Urine Negative (Negative); pH Urine 5.5 (4.5-7.5)
[2021-08-10] MEDS ORDERED: INFLUENZA VACCINE HIGH DOSE PF 65+ 0.7 ML SYR IM ONE (17:45)
--- NOTE | 2021-08-10 18:35 | XCELERA ---
[id number] \\[id number]
[2021-08-10] MEDS: LOSARTAN POTASSIUM 50 MG TAB PO SCH (20:17)
[2021-08-10] MEDS: PARoxetine HCL 20 MG TAB PO SCH (20:17)
[2021-08-10] MEDS: ATORVASTATIN 20 MG TAB PO SCH (20:17)
[2021-08-10] MEDS: PANTOprazole 40 MG TAB PO SCH (20:18)
[2021-08-10] MEDS ORDERED: FUROSEMIDE 20 MG in SYRINGE 0 ML IV ONE (22:00)
[2021-08-10] MEDS: ASPIRIN 81 MG ECTAB PO SCH (22:55)
--- NOTE | 2021-08-11 06:42 | Electrocardiogram Report ---
Test Reason : Blood Pressure : / mmHG Vent. Rate : 104 BPM Atrial Rate : 104 BPM P-R Int : 208 ms QRS Dur : 078 ms QT Int : 326 ms P-R-T Axes : 053 120 -37 degrees QTc Int : 428 ms Sinus tachycardia Right ventricular hypertrophy with repolarization abnormality T wave abnormality, consider inferior ischemia T wave abnormality, consider anterior ischemia Abnormal ECG No previous ECGs available Confirmed by Mark Moore ([id number]) on 08/11/2021 6:41:35 AM Referred By: Confirmed By:Mark Moore
--- NOTE | 2021-08-11 08:52 | Cardiology Consultation ---
Date of Consultation August 11, 2021 Assessment & Plan (1) Pulmonary edema: (2) Cardiomyopathy: (3) Right heart failure due to pulmonary hypertension: (4) Pulmonary hypertension: (5) Hypertension: 1. Pulmonary edema: She presents with pulmonary edema as evidenced by an elevated BNP, characteristic findings on chest x-ray and CT scanning which is all consistent with left heart failure. She also has a moderately decreased left ventricular ejection fraction consistent with a cardiomyopathy. 2. Cardiomyopathy: The cause of her cardiomyopathy is not clear. Her right heart failure could be due to lung disease and congestive heart failure, however the left ventricular dysfunction should not be. Her ECG does not suggest coronary disease nor does her history. Nevertheless we should consider cardiac catheterization which I will tentatively plan for Friday. She is on losartan wh ich I would continue for now but we could consider Entresto, I do not see a contraindication to beta-blockade and I am going to start low-dose carvedilol. 3. Right heart failure: Her right heart failure could be due to left heart failure, however she also has pulmonary hypertension and she has findings of interstitial lung disease and it may be that she has pulmonary hypertension secondary to lung disease with resultant right heart failure. 4. Pulmonary hypertension: A component of her pulmonary hypertension is most likely left heart failure, however the primary problem may be lung disease. This should probably be investigated independently, although there is certainly a component of left heart failure but it may not be the primary problem with her right heart. 5. Hypertension: Her blood pressure has been well controlled currently and she is on antihypertensives. History of Present Illness Reason for Consultation: Congestive heart failure, pulmonary hypertension Attending Physician: Venkatesh Olivo DO History of Present Illness This is a 70-year-old woman who has a history of hypertension, diabetes mellitus but presents with shortness of breath and slight leg swelling. She describes exertional dyspnea for the last 8 months but to my knowledge this has not been evaluated. She was noted to be hypoxic and required oxygen prior to presentation. Evaluation emergency room included a chest x-ray which showed pulmonary edema and a CT scan confirmed that but also suggested a chronic process such as interstitial lung disease. Her presenting electrocardiogram showed sinus tachycardia at 104 bpm with right ventricular hypertrophy and inferolateral T wave abnormalities. An echocardiogram was done August 10, 2021 and showed normal left ventricular size with moderate left ventricular dysfunction with an ejection fraction of 35 to 40% with global hypokinesis. Image quality was poor to look for wall motion abnormalities. There was a suggestion of right ventricular volume overload and she had mild concentric left ventricular hypertrophy. The right ventricle was severely dilated with severe right ventricular dysfunction. Severe pulmonary hypertension was present with an estimated systolic pressure of 63 mmHg. Kidney function was mildly abnormal on presentation and there was an elevated BNP as well as a reduced albumin and suggestion of liver congestion based on enzymes and a slightly elevated INR. She has been diuresed with some improvement in her weight. Her pulse has decreased and her hypoxia has corrected with oxygen and diuresis. At the time of my evaluation she was feeling considerably better although noted that her legs were still swollen. No palpitations or chest discomfort. Allergies Allergy/AdvReac Type Severity Reaction Status Date / Time epinephrine AdvReac Rash Verified 08/10/21 14:38 Penicillins AdvReac Fever Verified 08/10/21 14:38 Sulfa (Sulfonamide AdvReac Rash Verified 08/10/21 14:38 Antibiotics) Codeine SULFATE AdvReac NIGHTMARES Uncoded 08/10/21 14:38 Home Medications Medication Instructions Recorded Confirmed Type atorvastatin 20 mg tablet 20 mg PO QPM 08/10/21 08/10/21 History hydrochlorothiazide 12.5 mg capsule 12.5 mg PO QPM 08/10/21 08/10/21 History losartan 50 mg tablet 50 mg PO QPM 08/10/21 08/10/21 History omeprazole 20 mg capsule,delayed 20 mg PO QPM 08/10/21 08/10/21 History release paroxetine HCl 20 mg tablet 20 mg PO QPM 08/10/21 08/10/21 History Patient History Medical History (Updated 08/12/21 @ 10:33 by Carlos Eduardo Guevara MD) Acid reflux Dyslipidemia Hypertension Panic disorder T2DM (type 2 diabetes mellitus) Surgical History S/P cholecystectomy S/P tonsillectomy Family History Mother Breast cancer Grandfather (Maternal) Myocardial infarction Denies family history of Ovarian cancer Prostate cancer Lung cancer Colorectal cancer Social History Smoking Status: Never smoker Age Started Using Tobacco: 22; Age Quit Using Tobacco: 24; Second Hand Exposure: No; Hx Alcohol Use: No Hx Substance Use: No Preferred Language: Divehi Communication Ability: Effective Visual Impairment: No Limitations Hearing Ability: Normal Beliefs That Will Affect Care: None marital status: / Current Living Situation: Alone Current Living Situation Comment: lives in home with dogs current occupational status: employed current occupation: [employer] Other Information That Helps Us Care for You: No Feels Safe at Home: Yes Safety Concerns: Feels Safe At This Time Childhood Exposure to Second-Hand Smoke: No Diet Comment: regular caffeine: Yes (2 cups coffee / half caffeine) Dental Care, Regularly: Yes Physical Activity Frequency: 3-4 Times per Week Physical Activity Frequency Comment: walking Seatbelt Use: always Sunscreen Use: Yes Assistive Devices: Glasses and Oxygen - Continuous Review of Systems Review of Systems: All systems reviewed & are unremarkable except as noted in HPI & below Physical Exam Physical Exam: Constitutional: Alert, cooperative and in no distress. HEENT: Unremarkable Neck: No jugular venous distention, carotid pulses are normal and equal bilaterally without bruits. Pulmonary: Diffuse crackles on auscultation bilaterally. Cardiac: Regular rhythm with no murmur, gallop or rub. Abdomen: Soft, nontender with normal bowel sounds. Extremities: +1 bilateral pretibial edema. Distal pulses intact. Neurologic: No focal findings. Gait was not tested. Skin: No rash, ecchymoses or petechiae. Results & Data ([facility]) Vital Signs (Past 12 Hours) Vital Signs Temp Pulse Pulse Resp BP Pulse Ox 08/11/21 07:52 36.7 C 94 H 18 133/90 93 08/11/21 04:00 36.6 C 95 H 18 112/72 94 08/11/21 03:26 93 H 08/11/21 00:00 36.6 C 98 H 18 121/80 92 Laboratory Results Cardiac Enzymes 08/10/21 Range/Units 11:53 AST 33 (15-37) U/L Troponin I 0.027 (0-0.045) ng/ml Coagulation 08/10/21 Range/Units 11:53 PT 11.7 (9.0-12.0) Seconds APTT 25.0 (21.0-31.0) Seconds CBC 08/10/21 Range/Units 11:53 WBC 9.62 (4.8-10.8) K/uL RBC 4.96 (4.2-5.4) M/uL Hgb 15.3 (12.0-16.0) g/dL Hct 45.8 (37-47) % Plt Count 241 (130-400) K/uL Neut # (Auto) 7.50 H (1.4-6.5) K/uL Lymph # (Auto) 1.16 L (1.2-3.4) K/uL [place] # (Auto) 0.85 H (0.11-0.59) K/uL Eos # (Auto) 0.09 (0-0.5) K/uL Baso # (Auto) 0.01 (0-0.2) K/uL Comprehensive Metabolic Panel 08/10/21 Range/Units 11:53 Sodium 140 (136-145) mmol/L Potassium 3.4 L (3.5-5.1) mmol/L Chloride 106 (98-107) mmol/L Carbon Dioxide 27 (21-32) mmol/L BUN 29 H (7-18) mg/dl Creatinine 1.34 H (0.6-1.2) mg/dl Glucose 97 (70-99) mg/dl Calcium 8.3 L (8.5-10.1) mg/dl AST 33 (15-37) U/L ALT 42 (12-78) U/L Alkaline Phosphatase 126 H (45-117) U/L Total Protein 7.3 (6.4-8.2) gm/dl Albumin 3.2 L (3.4-5.0) gm/dl Intake and Output 08/10/21 08/11/21 08/11/21 22:59 06:59 14:59 Intake Total 100 / 400 300 / 400 Output Total 1099 Balance -1000 / -1600 -600 / -1600 Intake: IV 100 / 200 100 / 200 Magnesium Sulfate / D5w 1 gm In 100 / 200 100 / 200 100 ml @ 50 mls/hr IV ONE ONE Rx#:[id number] Oral 200 / 200 Output: Urine 1099 Other: Weight 202 kg 92.2 kg Weight Measurement Method Standing Scale Built in [facility] Care Time/CCT Total # of Minutes Spent Total Time Spent with Patient: Total time spent is greater than 50% in coordination of care (as documented) at patient's floor/unit and/or counseling patient: Coding Level of Care Code 88244 Initial Inpt Care Lvl 3 Diagnoses Pulmonary edema J81.0 Chronicity: acute Right heart failure due to pulmonary hypertension I27.29; I50.810 Pulmonary hypertension I27.20 Hypertension I10 Hypertension type: primary hypertension Cardiomyopathy I42.9 Cardiomyopathy type: unspecified (1) Pulmonary edema Chronicity: acute Qualified Code(s): J81.0 - Acute pulmonary edema (2) Hypertension Hypertension type: primary hypertension Qualified Code(s): I10 - Essential (primary) hypertension (3) Cardiomyopathy Cardiomyopathy type: unspecified Qualified Code(s): I42.9 - Cardiomyopathy, unspecified
[2021-08-11 09:20] LABS: Basophils # (auto) 0.01 K/uL (0-0.2); Basophils % (auto) 0.1 %; Eosinophils # (auto) 0.16 K/uL (0-0.5); Eosinophils % (auto) 1.7 %; Hemoglobin 13.9 g/dL (12.0-16.0); Immature Granulocytes # (auto) 0.01 K/uL (0.00-0.02); Immature Granulocytes % (auto) 0.1 %; Lymphocytes # (auto) 0.82 K/uL (1.2-3.4); Lymphocytes % (auto) 8.8 %; Mean Corpuscular Hemoglobin 30.6 pg (25-34); Mean Corpuscular Hgb Conc 33.1 g/dL (32-36); Mean Corpuscular Volume 92.5 fL (80-100); Mean Platelet Volume 10.1 fL (7.4-10.4); Monocytes % (auto) 8.6 %; Neutrophils # (auto) 7.49 K/uL (1.4-6.5); Neutrophils % (auto) 80.7 %; Platelet Count 247 K/uL (130-400); RDW Coefficient of Variation 16.3 % (11.5-14.5); RDW Standard Deviation 54.9 fL (36.4-46.3); Red Blood Count 4.54 M/uL (4.2-5.4); White Blood Count 9.29 K/uL (4.8-10.8)
--- NOTE | 2021-08-11 09:29 | Pulmonary Consultation ---
Date of Consultation August 11, 2021 Assessment & Plan (1) Pulmonary hypertension: CT chest 08/10/2021 personally reviewed: Diffuse groundglass opacities appreciated bilaterally upper and lower lobes Interlobular thickening, increased activity marking bilateral lower lobes Cardiomegaly No mediastinal lymphadenopathy --Acute hypoxic respiratory failure Likely secondary to volume overload from CHF exacerbation COVID-19 PCR negative x2 Respiratory bio fire negative BNP 2427 BiPAP nightly and as needed shortness of breath --Patient likely has underlying ILD as well Unfortunately there is no previous CAT scan to compare I will order autoimmune work-up along with hypersensitivity pneumonitis panel Apparently patient had a chest x-ray done in the mid 30s, she never had a CT chest done. On the chest x-ray the physician did ask her if she [place]. This likely means that the he was thinking about hypersensitive pneumonitis. She has never been treated with prednisone No indication for steroids right now Would recommend repeating HRCT chest in 3 months PFTs as outpatient. --Pulmonary hypertension Combination of type II-type III Management as above 2D echo 08/10/2021: EF 35 to 40%, RVSP 63, mild to moderate TR Plan: In/out: -1600, urine output 2000 Follow-up autoimmune work-up Continue with O2 supplementation, BiPAP nightly and as needed shortness of breath Continue with diuresis to keep the patient negative balance Please note the above document was generated using voice recognition software. It may contain grammatical, syntax or spelling errors.Any formal questions or concerns about the content, text or information contained within the body of this dictation should be directly addressed to the provider for clarification. History of Present Illness Attending Physician: Venkatesh Olivo DO History of Present Illness 70-year-old female presented to the hospital with complaints of shortness of breath. Shortness of air has been progressively getting worse for months with fatigue. At the time of examination patient said that she is feeling much better after coming to the hospital She denied any chest pain, no nausea or vomiting Shortness of breath is significantly improved Denies any fever or chills. Denies any significant cough Patient has no personal or family history of any autoimmune disease like lupus, sarcoid, rheumatoid arthritis, Sjogren's. Denies any personal history of Raynaud's phenomena. No family history of any lung disease Patient does state that in her mid 30s she had a chest x-ray done by one of the physician told her that she might have hypersensitivity pneumonitis. Social history: Non-smoker. Social alcohol, denies any illicit drug use. 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 Pets: No birds or poultry nearby. Did not grow up on a farm. As a kid she used to have birds for approximately 3 years Allergies Allergy/AdvReac Type Severity Reaction Status Date / Time epinephrine AdvReac Rash Verified 08/10/21 14:38 Penicillins AdvReac Fever Verified 08/10/21 14:38 Sulfa (Sulfonamide AdvReac Rash Verified 08/10/21 14:38 Antibiotics) Codeine SULFATE AdvReac NIGHTMARES Uncoded 08/10/21 14:38 Home Medications Medication Instructions Recorded Confirmed Type atorvastatin 20 mg tablet 20 mg PO QPM 08/10/21 08/10/21 History hydrochlorothiazide 12.5 mg capsule 12.5 mg PO QPM 08/10/21 08/10/21 History losartan 50 mg tablet 50 mg PO QPM 08/10/21 08/10/21 History omeprazole 20 mg capsule,delayed 20 mg PO QPM 08/10/21 08/10/21 History release paroxetine HCl 20 mg tablet 20 mg PO QPM 08/10/21 08/10/21 History Patient History Medical History (Updated 08/11/21 @ 09:01 by Ariel Shafer MD) Acid reflux Dyslipidemia Hypertension Panic disorder T2DM (type 2 diabetes mellitus) Surgical History S/P cholecystectomy S/P tonsillectomy Family History Mother Breast cancer Grandfather (Maternal) Myocardial infarction Denies family history of Ovarian cancer Prostate cancer Lung cancer Colorectal cancer Social History Smoking Status: Never smoker Age Started Using Tobacco: 22; Age Quit Using Tobacco: 24; Second Hand Exposure: No; Hx Alcohol Use: No Hx Substance Use: No Preferred Language: Romanian Communication Ability: Effective Visual Impairment: No Limitations Hearing Ability: Normal Beliefs That Will Affect Care: None marital status: / Current Living Situation: Alone Current Living Situation Comment: lives in home with dogs current occupational status: employed 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 Other Information That Helps Us Care for You: No Feels Safe at Home: Yes Safety Concerns: Feels Safe At This Time Childhood Exposure to Second-Hand Smoke: No Diet Comment: regular caffeine: Yes (2 cups coffee / half caffeine) Dental Care, Regularly: Yes Physical Activity Frequency: 3-4 Times per Week Physical Activity Frequency Comment: walking Seatbelt Use: always Sunscreen Use: Yes Assistive Devices: Glasses and Oxygen - Continuous Review of Systems Review of Systems: All systems reviewed & are unremarkable except as noted in HPI & below Physical Exam Physical Exam: Constitutional: No acute distress HEENT: EOMI, PERRLA Respiratory system: Decreased air entry bilaterally, no wheeze, rhonchi, positive Velcro crackles bilaterally more on the right side CVS: S1-S2 positive, no murmurs or gallops Abdomen: Soft, nontender, nondistended, positive bowel sounds x4 Extremities: +2 pulses bilaterally radialis/ dorsalis pedis, no cyanosis, no domitila ma Neuro: Awake alert oriented x3 Psych: Normal mood and affect G/U: No Blackwell Skin: no rashes, warm and dry Lymphatic: no cervical or axillary lymphadenopathy Results & Data Results & Data ([facility]) Vital Signs (Past 12 Hours) Vital Signs Temp Pulse Pulse Resp BP Pulse Ox 08/11/21 07:52 36.7 C 94 H 18 133/90 93 08/11/21 04:00 36.6 C 95 H 18 112/72 94 08/11/21 03:26 93 H 08/11/21 00:00 36.6 C 98 H 18 121/80 92 08/11/21 08:49 PG Care Time/CCT Total # of Minutes Spent Total Time Spent with Patient: Total time spent is greater than 50% in coordination of care (as documented) at patient's floor/unit and/or counseling patient: Coding Level of Care Code 07813 Initial Inpt Care Lvl 3 Diagnoses Pulmonary hypertension I27.20
[2021-08-11] MEDS ORDERED: ENOXAPARIN INJ 40 MG/0.4 ML SYR SQ SCH (09:30)
[2021-08-11 09:50] LABS: BUN Creatinine Ratio 18.6 (10-20); Calcium 8.8 mg/dl (8.5-10.1); Creatinine Clr Calc Pharmacy 42.3 ml/min; Est GFR (African American) 45.3 ml/min; Est GFR (Non-African American) 39.1 ml/min; Magnesium 1.4 mg/dl (1.8-2.4); Potassium 3.6 mmol/L (3.5-5.1)
[2021-08-11 10:00] LABS: Estimated Average Glucose 157 mg/dl; Hemoglobin A1C 7.1 % (4.5-5.6)
[2021-08-11] MEDS: ASPIRIN 81 MG ECTAB PO SCH (10:05)
[2021-08-11] MEDS: carvediloL 3.125 MG TAB PO SCH ×2 (10:05→20:26)
[2021-08-11] MEDS: FUROSEMIDE 40 MG in SYRINGE 0 ML IV SCH (10:05)
[2021-08-11 10:42] LABS: C Reactive Protein < 0.29 mg/dl (0-0.29); Creatine Kinase 106 U/L (26-192)
[2021-08-11] MEDS: APIXABAN 5 MG TABLET PO SCH ×2 (13:17→20:19)
--- NOTE | 2021-08-11 18:27 | Hospitalist Progress Note ---
Date of Service August 11, 2021 Assessment & Plan (1) Pulmonary edema: Plan: After further review acute systolic CHF present on admissionimproved with IV Lasix. Uncertain etiology of her cardiomyopathyagree with heart cath on Friday. Continue to streamline/titrate med regimen for afterload reduction etc. (2) Viral pneumonia: Plan: Less likely be the casemore likely that she has underlying pulmonary disease and that the pulmonary edema was the acuity. Appreciate pulmonary input, autoimmune work-up ordered. Continue supportive care (3) Hypoxia: Plan: Now more stableacuity appears to have likely been from pulmonary edema (4) Acid reflux: Plan: Continue PPI (5) T2DM (type 2 diabetes mellitus): Plan: A1c 7.1 (6) Dyslipidemia: Plan: Continue atorvastatin 20mg PO HS (7) Hypertension: Plan: Follow blood pressure with diuresis (8) Abnormal EKG: Plan: Troponin negative on admission and no acute worsening within last 24 hours therefore no need to repeat this. Plan: VTE Prophyalxis - Lovenox 40mg SQ daily Diet - heart healthy, Low Na, Fluid restrict 1500ml Disposition -appears to be improving. Continue current care for now, anticipate heart cath on Friday, appreciate websphere commerce consultant input. Ultimate disposition will be home. Hopefully will not need home O2 Admission and Anticipated Discharge Date Admission Date: August 10, 2021 Results & Data Results & Data ([facility]) Vital Signs (Past 12 Hours) Vital Signs Temp Pulse Pulse Resp BP BP Pulse Ox 08/11/21 16:11 92 H 08/11/21 15:00 98.1 F 95 H 18 100/67 90/56 L 98 08/11/21 11:51 89 08/11/21 11:43 98.1 F 104 H 18 115/76 90 08/11/21 07:52 98.1 F 94 H 18 133/90 93 PG Care Time/CCT Total # of Minutes Spent Total Time Spent with Patient: Total time spent is greater than 50% in coordination of care (as documented) at patient's floor/unit and/or counseling patient: Coding Level of Care Code 55696 Subseq Hosp Care Lvl 3 Diagnoses Pulmonary edema J81.0 Chronicity: acute Viral pneumonia J12.9 Hypoxia R09.02 Acid reflux K21.9 T2DM (type 2 diabetes mellitus) E11.9 Dyslipidemia E78.5 Hypertension I10 Hypertension type: primary hypertension Abnormal EKG R94.31 (1) Pulmonary edema Chronicity: acute Qualified Code(s): J81.0 - Acute pulmonary edema (2) Hypertension Hypertension type: primary hypertension Qualified Code(s): I10 - Essential (primary) hypertension
[2021-08-11] MEDS: PARoxetine HCL 20 MG TAB PO SCH (20:19)
[2021-08-11] MEDS: ATORVASTATIN 20 MG TAB PO SCH (20:21)
[2021-08-11] MEDS: PANTOprazole 40 MG TAB PO SCH (20:21)
[2021-08-11] MEDS: LOSARTAN POTASSIUM 50 MG TAB PO SCH (20:26)
[2021-08-12 07:39] LABS: BUN Creatinine Ratio 19.3 (10-20); Calcium 8.8 mg/dl (8.5-10.1); Creatinine Clr Calc Pharmacy 43.3 ml/min; Est GFR (Non-African American) 40.6 ml/min; Potassium 4.2 mmol/L (3.5-5.1)
[2021-08-12] MEDS: APIXABAN 5 MG TABLET PO SCH (08:34)
[2021-08-12] MEDS: carvediloL 3.125 MG TAB PO SCH ×2 (08:34→20:23)
[2021-08-12] MEDS: ASPIRIN 81 MG ECTAB PO SCH (08:34)
[2021-08-12] MEDS: FUROSEMIDE 40 MG in SYRINGE 0 ML IV SCH (08:35)
--- NOTE | 2021-08-12 10:38 | Pulmonology Progress Note ---
Date of Service August 12, 2021 Assessment & Plan (1) Pulmonary hypertension: (2) Acute respiratory failure with hypoxia: (3) Abnormal chest CT: (4) ILD (interstitial lung disease): Plan: CT chest 08/10/2021 personally reviewed: Diffuse groundglass opacities appre ciated bilaterally upper and lower lobes Interlobular thickening, increased activity marking bilateral lower lobes Cardiomegaly No mediastinal lymphadenopathy --Acute hypoxic respiratory failure Likely secondary to volume overload from CHF exacerbation COVID-19 PCR negative x2 Respiratory bio fire negative BNP 2427 BiPAP nightly and as needed shortness of breath --Patient likely has underlying ILD as well Unfortunately there is no previous CAT scan to compare I will order autoimmune work-up along with hypersensitivity pneumonitis panel Apparently patient had a chest x-ray done in the mid 30s, she never had a CT chest done. On the chest x-ray the physician did ask her if she grew up [place] a farm. This likely means that the he was thinking about hypersensitive pneumonitis. She has never been treated with prednisone No indication for steroids right now Would recommend repeating HRCT chest in 3 months PFTs as outpatient. --Pulmonary hypertension Combination of type II-type III Management as above 2D echo 08/10/2021: EF 35 to 40%, RVSP 63, mild to moderate TR Plan: In/out: -1590, urine output 2350 Patient is clinically doing much better when it comes to her pulmonary status. No acute intervention from pulmonary while in the hospital Continue with diuretics Follow-up autoimmune work-up Recommend 2 step prior to discharge to see if the patient needs oxygen at home. No further recommendation from pulmonary perspective. Will sign off Please call directly with any questions. Please note the above document was generated using voice recognition software. It may contain grammatical, syntax or spelling errors.Any formal questions or concerns about the content, text or information contained within the body of this dictation should be directly addressed to the provider for clarification. Admission and Anticipated Discharge Date Admission Date: August 10, 2021 Subjective Patient seen and examined at bedside. No acute distress, no adverse events overnight. Patient states she feels feeling much better after coming to the hospital Shortness of breath is improved. She still on oxygen requiring up to 2 L. Denies any chest pain, not bringing up any phlegm. Good appetite. No revision. Review of Systems Review of Systems: All systems reviewed & are unremarkable except as noted in Subjective Physical Exam Physical Exam: Constitutional: No acute distress HEENT: EOMI, PERRLA Respiratory system: Decreased air entry bilaterally, no wheeze, rhonchi, positive Velcro crackles bilaterally more on the right side CVS: S1-S2 positive, no murmurs or gallops Abdomen: Soft, nontender, nondistended, positive bowel sounds x4 Extremities: +2 pulses bilaterally radialis/ dorsalis pedis, no cyanosis, no edema, no clubbing Neuro: Awake alert oriented x3 Psych: Normal mood and affect G/U: No Blackwell Skin: no rashes, warm and dry Lymphatic: no cervical or axillary lymphadenopathy Results & Data Results & Data ([facility]) Vital Signs (Past 12 Hours) Vital Signs Temp Pulse Pulse Resp BP Pulse Ox 08/12/21 07:45 92 H 08/12/21 07:00 36.9 C 88 18 123/75 93 08/12/21 04:00 36.9 C 84 18 106/70 93 08/12/21 02:23 88 08/11/21 23:20 36.8 C 97 H 18 102/65 92 08/11/21 08:49 08/12/21 06:36 PG Care Time/CCT Total # of Minutes Spent Total Time Spent with Patient: Total time spent is greater than 50% in coordination of care (as documented) at patient's floor/unit and/or counseling patient: Coding Level of Care Code 79926 Subseq Hosp Care Lvl 2 Diagnoses Pulmonary hypertension I27.20 Acute respiratory failure with hypoxia J96.[address] R93.89 ILD (interstitial lung disease) J84.9
--- NOTE | 2021-08-12 16:02 | Hospitalist Progress Note ---
Date of Service August 12, 2021 Assessment & Plan (1) Pulmonary edema: Plan: After further review acute systolic CHF present on admissionimproved with IV Lasix. Uncertain etiology of her cardiomyopathyagree with heart cath on Friday. After cath, will be able to better define med regimen. Discussed sodium restrictionhe expressed a very astute understanding of this. (2) Viral pneumonia: Plan: Less likely be the casemore likely that she has underlying pulmonary disease and that the pulmonary edema was the acuity. Appreciate pulmonary input, autoimmune/allergic work-up ordered. Continue supportive care. Possibly idiopathic fibrosis. (3) Hypoxia: Plan: Now more stableacuity appears to have likely been from pulmonary edema, continue Lasix for now since creatinine has not really shown much of a rise, try to work off of oxygenbut discussed with patient there is a small but real chance she might need home oxygen. (4) Acid reflux: Plan: Continue PPI (5) T2DM (type 2 diabetes mellitus): Plan: A1c 7.1. Sugars reasonable (6) Dyslipidemia: Plan: Continue atorvastatin 20mg PO HS (7) Hypertension: Plan: Follow blood pressure with diuresisstill reasonable (8) Abnormal EKG: Plan: Heart cath tomorrow Plan: VTE Prophyalxis - Lovenox 40mg SQ daily Diet - heart healthy, Low Na, Fluid restrict 1500ml Disposition -appears to be improving. Continue current care for now, anticipate heart cath on Friday, appreciate managing consultant clinical professor input. Ultimate disposition will be home. Hopefully will not need home O2, but depending on how she is doing tomorrow, and after cath and discharge planning is more crystallizedmay need to step Admission and Anticipated Discharge Date Admission Date: August 10, 2021 Subjective Breathing doing much better. Still needing oxygen, but notes that whenever she gets up and around to go to the bathroom she does not have much dyspnea. Case discussed with pulmonary at the bedside as well, input greatly appreciated. For left heart cath tomorrow. Discussed sodium as it relates to preventing future fluid retention. Review of Systems Review of Systems: All systems reviewed & are unremarkable except as noted in HPI & below Physical Exam Physical Exam: General she is awake and alert pleasant no distress. HEENT normocephalic atraumatic mucous membranes moist. Lungs are more clear than yesterday, but still has diffuse crackles throughout no rhonchi no wheezes no accessory muscle use good effort. No focal neuro deficits. Results & Data Results & Data ([facility]) Vital Signs (Past 12 Hours) Vital Signs Temp Pulse Pulse Resp BP Pulse Ox 08/12/21 14:00 98.8 F 84 18 108/74 91 08/12/21 11:04 98.2 F 88 20 94/61 L 92 08/12/21 07:45 92 H 08/12/21 07:00 98.4 F 88 18 123/75 93 PG Care Time/CCT Total # of Minutes Spent Total Time Spent with Patient: Total time spent is greater than 50% in coordination of care (as documented) at patient's floor/unit and/or counseling patient: Coding Level of Care Code 21362 Subseq Hosp Care Lvl 3 Diagnoses Pulmonary edema J81.0 Chronicity: acute Viral pneumonia J12.9 Hypoxia R09.02 Acid reflux K21.9 T2DM (type 2 diabetes mellitus) E11.9 Dyslipidemia E78.5 Hypertension I10 Hypertension type: primary hypertension Abnormal EKG R94.31 (1) Pulmonary edema Chronicity: acute Qualified Code(s): J81.0 - Acute pulmonary edema (2) Hypertension Hypertension type: primary hypertension Qualified Code(s): I10 - Essential (primary) hypertension
--- NOTE | 2021-08-12 18:37 | Cardiology Progress Note ---
Date of Service August 12, 2021 Assessment & Plan (1) Pulmonary edema: (2) Cardiomyopathy: (3) Right heart failure due to pulmonary hypertension: (4) Pulmonary hypertension: (5) Hypertension: Plan: 1. Pulmonary edema: She presents with pulmonary edema as evidenced by an elevated BNP, characteristic findings on chest x-ray and CT scanning which is all consistent with left heart failure. She also has a moderately decreased left ventricular ejection fraction consistent with a cardiomyopathy. This has been improved considerably with diuresis and she feels well. 2. Cardiomyopathy: The cause of her cardiomyopathy is not clear. Her right heart failure could be due to lung disease and congestive heart failure, however the left ventricular dysfunction should not be. Her ECG does not suggest coronary disease nor does her history. Nevertheless we should consider cardiac catheterization which I will tentatively plan for Friday. She is agreeable. She is on losartan which I would continue for now but we could consider Entresto, I did start low-dose carvedilol, her heart rate has improved somewhat and her blood pressure little on the low side (although asymptomatic) and I am not going to increase the dose at this time. Over time we should increase that. 3. Right heart failure: Her right heart failure could be due to left heart failure, however she also has pulmonary hypertension and she has findings of interstitial lung disease and it may be that she has pulmonary hypertension secondary to lung disease with resultant right heart failure. 4. Pulmonary hypertension: A component of her pulmonary hypertension is most likely left heart failure, however the primary problem may be lung disease. This should probably be investigated independently, although there is certainly a component of left heart failure but it may not be the primary problem with her right heart. I think a right heart catheterization is reasonable in this setting. 5. Hypertension: Her blood pressure has been well controlled currently and she is on antihypertensives. Admission and Anticipated Discharge Date Admission Date: August 10, 2021 Subjective She continues to feel better, she is much less short of breath and feels that she does not need oxygen now. She notes improvement in her leg swelling. No chest discomfort but she has not been very active. No orthopnea or PND currently. Physical Exam Physical Exam: Constitutional: Alert, cooperative and in no distress. HEENT: Unremarkable Neck: No jugular venous distention, carotid pulses are normal and equal bilaterally without bruits. Pulmonary: Diffuse crackles on auscultation bilaterally. Cardiac: Regular rhythm with no murmur, gallop or rub. Abdomen: Soft, nontender with normal bowel sounds. Extremities: Trace bilateral pretibial edema. Distal pulses intact. Neurologic: No focal findings. Gait was not tested. Skin: No rash, ecchymoses or petechiae. Results & Data ([facility]) Vital Signs (Past 12 Hours) Vital Signs Temp Pulse Pulse Resp BP Pulse Ox 08/12/21 16:19 89 08/12/21 14:00 37.1 C 84 18 108/74 91 08/12/21 11:04 36.8 C 88 20 94/61 L 92 08/12/21 07:45 92 H 08/12/21 07:00 36.9 C 88 18 123/75 93 Laboratory Results Comprehensive Metabolic Panel 08/12/21 Range/Units 06:36 Sodium 143 (136-145) mmol/L Potassium 4.2 D (3.5-5.1) mmol/L Chloride 104 (98-107) mmol/L Carbon Dioxide 35 H (21-32) mmol/L BUN 25 H (7-18) mg/dl Creatinine 1.31 H (0.6-1.2) mg/dl Glucose 100 H (70-99) mg/dl Calcium 8.8 (8.5-10.1) mg/dl Intake and Output 08/12/21 08/12/21 08/12/21 06:59 14:59 22:59 Intake Total 200 / 760 240 / 240 Output Total 750 / 2350 1000 / 1000 Balance -550 / -1590 -760 / -760 Intake: Oral 200 / 760 240 / 240 Output: Urine 750 / 2350 1000 / 1000 Other: Weight 91.2 kg Weight Measurement Method Built in [facility] Diagnostic Findings Telemetry: Sinus rhythm, rate 80 to 90 bpm PG Care Time/CCT Total # of Minutes Spent Total Time Spent with Patient: Total time spent is greater than 50% in coordination of care (as documented) at patient's floor/unit and/or counseling patient: Coding Level of Care Code 67489 Subseq Hosp Care Lvl 3 Diagnoses Pulmonary edema J81.0 Chronicity: acute Cardiomyopathy I42.9 Cardiomyopathy type: unspecified Right heart failure due to pulmonary hypertension I27.29; I50.810 Pulmonary hypertension I27.20 Hypertension I10 Hypertension type: primary hypertension (1) Pulmonary edema Chronicity: acute Qualified Code(s): J81.0 - Acute pulmonary edema (2) Hypertension Hypertension type: primary hypertension Qualified Code(s): I10 - Essential (primary) hypertension (3) Cardiomyopathy Cardiomyopathy type: unspecified Qualified Code(s): I42.9 - Cardiomyopathy, unspecified
[2021-08-12] MEDS ORDERED: SODIUM CHLORIDE 0.9% 1000ML 1,000 ML IV SCH (18:45)
[2021-08-12] MEDS: LOSARTAN POTASSIUM 50 MG TAB PO SCH (20:22)
[2021-08-12] MEDS: PANTOprazole 40 MG TAB PO SCH (20:22)
[2021-08-12] MEDS: ATORVASTATIN 20 MG TAB PO SCH (20:22)
[2021-08-12] MEDS: PARoxetine HCL 20 MG TAB PO SCH (20:23)
[2021-08-13] MEDS ORDERED: SODIUM CHLORIDE 0.9% 1000ML 1,000 ML IV SCH (04:00)
[2021-08-13 08:36] LABS: BUN Creatinine Ratio 20.3 (10-20); Calcium 8.8 mg/dl (8.5-10.1); Est GFR (African American) 46.6 ml/min; Est GFR (Non-African American) 40.2 ml/min; Potassium 4.1 mmol/L (3.5-5.1)
--- NOTE | 2021-08-13 11:26 | Pre Anesthesia Assessment ---
Date of Service August 13, 2021 Pre Sedation Assessment Vital Signs Temp Pulse Pulse Resp BP BP Pulse Ox 08/13/21 09:47 122/74 08/13/21 09:44 78 08/13/21 07:44 37.0 C 83 16 99/66 L 90 08/13/21 03:49 36.7 C 87 18 127/84 92 08/13/21 01:00 99 H 08/12/21 22:59 36.8 C 89 18 109/72 94 08/12/21 19:35 36.7 C 88 18 114/77 92 08/12/21 16:19 89 08/12/21 14:00 37.1 C 84 18 108/74 91 Cardiovascular + regular rate and + regular rhythm Respiratory + respiratory effort normal Additional Comments: on supplemental O2 Pre-Sedation Airway Assessment Smoking Status: Never smoker Hx Sleep Apnea: No Hx Difficult Intubation: No Short, Thick Neck: No Thyromental Distance: > or= 3.5 Finger Breadths Oral Cavity: + WNL Mallampati Class: III ASA: ASA3 Procedure Planning Contraindications for Sedation: none Current Medications Reviewed: Yes Notes The planned sedation has been discussed with the patient. Informed Consent was obtained. I have identified the patient, determined the appropriateness of sedation and have assessed the patient immediately prior to the procedure. All medicine(s) and interventions are by my order.
[2021-08-13] MEDS ORDERED: niCARdipine HCL INJ 2.5 MG/ML 10 ML AMP ONE (11:34)
[2021-08-13] MEDS ORDERED: fentaNYL citrate 100 MCG/2 ML VIAL ONE (11:34)
[2021-08-13] MEDS ORDERED: HEPARIN (PORCINE) 1000 UNIT/ML 10 ML (CATH LAB USE ONLY) ONE (11:34)
[2021-08-13] MEDS ORDERED: MIDAZOLAM HCL 1 MG/ML 2ML VIAL ONE (11:34)
[2021-08-13] MEDS ORDERED: NITROGLYCERIN/D5W 100MCG/ML 20ML SYR ONE (11:35)
[2021-08-13] MEDS: ASPIRIN 81 MG ECTAB PO SCH (11:44)
[2021-08-13] MEDS: carvediloL 3.125 MG TAB PO SCH (11:44)
--- NOTE | 2021-08-13 12:21 | Post Anesthesia Assessment ---
Date of Service August 13, 2021 Post Sedation Assessment Vital Signs Temp Pulse Pulse Resp BP BP Pulse Ox 08/13/21 11:23 93 H 17 133/92 97 08/13/21 09:47 122/74 08/13/21 09:44 78 08/13/21 07:44 37.0 C 83 16 99/66 L 90 08/13/21 03:49 36.7 C 87 18 127/84 92 08/13/21 01:00 99 H 08/12/21 22:59 36.8 C 89 18 109/72 94 08/12/21 19:35 36.7 C 88 18 114/77 92 08/12/21 16:19 89 08/12/21 14:00 37.1 C 84 18 108/74 91 Recovery Score Activity: Moves 4 extremities Respiration: Deep Breath/Cough Circulation: +/-20% PreAnes Value Consciousness: Fully Awake Oxygen Saturation: > 92% On Room Air Discharge Sedation Level of Care: Fast Track Phase II Post Sedation Plan On clinical assessment, the patient appears to have tolerated the sedation without complications. Patient is recovering as anticipated. Patient will continue to be monitored by nursing and may be discharged when sedation discharge criteria are met per below protocol. Upon Completions of procedure up to 15 minutes continue every 5 minute vital signs and the P.A.R. score; then discharge to a Phase I or Fast Track to Phase II per the following guidelines: * Discharge Patient to appropriate Phase II area if PAR is 8 or greater or return to pre- procedure baseline. The post - procedure orders will be as directed. * If PAR score is less than 8 or not return to pre-procedure baseline then patient will follow Phase I monitoring till PAR is reached for Phase II. The Phase I may be done in procedure room or may call to secure a Phase I area. * If naloxone or flumazenil are used for reversal, hold in Phase I for continued monitoring from when last reversal dose was given for a minimum of 60 minutes or longer pending the nurse and/or physician discretion of patient condition before discharge to Phase II. Please call the Sedation Physician to re-evaluate and complete post-note for discharge to Phase II area. Do NOT discharge from procedure sedation or Phase 1 until post- sedation evaluation note is complete by procedure /sedation MD Sedation Discharge Instructions to be given to the patient at discharge to home.
--- NOTE | 2021-08-13 12:22 | Cardiac Catheterization ---
[facility] Data: Predatory Animal Hunter Cardiac Status Clinical evaluation leading to the procedure CAD Presenation: Sx unlikely to be ischemic Diagnostic Physicians Name: Dominick Padilla MD Closure Device Recommendations: Medical Therapy and/or Counseling Cardiac Cath Procedure Full Procedure Date August 13, 2021 Pre-Procedure Diagnosis Pre-Procedure Diagnosis: CHF AUC Score AUC Score: 7 Post-Procedure Diagnosis Post-Procedure Diagnosis: Normal Coronary Arteries and Elevated Intracardiac Pressures Procedure(s) Performed Procedure(s) Performed: Coronary Angiography, Left Heart Cath and Right Heart Cath Shingle Cutter Dominick Padilla MD Compliance Specialist(s) none Estimated Blood Loss Estimated Blood Loss: 10cc Medication(s) Medication(s): Fentanyl, Heparin, Lidocaine 1%, Nicardipine, Nitroglycerin and Versed Summary of Findings Procedure performed: Left heart catheterization, right heart catheterization, selective coronary angiography Staff labeling machine operator: Dominick Padilla MD Indication: The patient is a 70-year-old woman admitted with hypoxia. She was noted to have evidence of reduced LV systolic function and pulmonary hypertension on echocardiography. Procedure in detail: The patient was informed the risk benefits alternatives to the intended procedure. She understood and wished to proceed. She was taken to the cardiac catheterization suite in a fasting state. Conscious sedation was administered per protocol and the patient was monitored electrocardiographically throughout today's procedure. The right antecubital and right radial areas were prepped and draped in usual sterile fashion. These areas were anesthetized using subcutaneous ministration of a lidocaine solution. The right antecubital vein was then accessed using a standard IV technique and a venous sheath was placed over guidewire at this site. The sheath was used to facilitate passage of a balloontipped catheter for pressure measurements and pulmonary artery catheterization. Hemodynamics were also measured prior to removal of this catheter and sheath. Hemostasis was achieved at the access site using manual pressure. The right radial artery was then accessed using Seldinger technique and a sheath was placed over guidewires at this site. This sheath was used facilitate passage of the cardiac catheters for selective coronary angiography and left heart catheterization. Images were obtained in multiple orthogonal views prior to removal of the catheter and sheath. Hemostasis was achieved at the access site using manual pressure. The patient tolerated procedure well. There were no immediate complications. Equipment used: 6 Portuguese balloontipped PA catheter 5 Portuguese [place] 4 5 Portuguese 3 DRC Coronary angiography: Left main: Left main coronary artery was normal in size and caliber and bifurcated normally into left anterior descending and left circumflex arteries. There was a slight bend in the proximal vessel but this did not appear to represent any significant obstruction and there was no disease in this vessel. Left anterior descending colon left anterior descending was a large transapical vessel. It produced a large first diagonal system and a medium sized second diagonal with some additional diminutive diagonals prior to reaching the apex. There is no disease in this distribution. Left circumflex: Left circumflex artery was a nondominant vessel. It produced a medium sized first OM branch which was tortuous in its distal portion. There is a small second OM branch and a medium size third OM branch which was also tortuous in its midportion. This appeared to be a left-sided posterior lateral branch. There were no significant obstructive lesions in the left circumflex system. Right coronary: Right coronary artery was a dominant vessel supplying the posterior descending artery. Had a very large acute marginal branch and a normal size PDA without significant disease. There was approximately 20% lesion in the midportion of the early right coronary. Hemodynamics: Grace cardiac output 3.2 L/min with an index of 1.64 Thermodilution cardiac output 3.25 L/min with an index of 1.64 Impression: Right dominant coronary system No obstructive coronary disease No evidence of aortic stenosis Moderate pulmonary hypertension Normal left ventricular filling pressure Reduced cardiac output Hemodynamics Rest Ao:: 107/71 mmHg Final Ao: 105/77 mmHg LV: 114/0 mmHg Left ventricular end-diastolic pressure 9 mmHg RA: Mean pressure was 7 mmHg RV: 63/0 mmHg PA: 65/30 mmHg PW: 27 mmHg Recommendations Recommendations: Medical Therapy and/or Counseling Specimens Specimens: None Radiation Exposure (mGy) 851 Contrast (mls) 40 Procedural Complication(s) None Disposition PCU I attest to the content of the Intraoperative Record and any orders documented therein. Any exceptions are noted below. [facility] Card Cath Procedure Codes Cardiac Catheterization Procedure 1: Cardiovascular Cath Procedures: 10248 Coronaries & LHC (+/-LV) & RHC Moderate Sedation Procedure 1: Sedation/Anesthesia: 91963 Mod Sedation by the same physician;Init15 Min Child Age 5 & Up Procedure 2: Sedation/Anesthesia: 05252 Mod Sedation by the same physician; Ea [id number] Minutes PG Care Time/CCT Total # of Minutes Spent Total Time Spent with Patient: Total time spent is greater than 50% in coordination of care (as documented) at patient's floor/unit and/or counseling patient:
[2021-08-13 12:32] LABS: iSTAT Arterial Blood Gas HCO3 34 meg/L (19-24); iSTAT Arterial Blood Gas pCO2 55 mmHg (35-46); iSTAT Arterial Blood Gas pO2 72 mmHg (80-95); iSTAT Carbon Dioxide 35 mmol/L (24-31)
[2021-08-13 12:32] LABS: iSTAT Arterial Blood Gas HCO3 37 meg/L (19-24); iSTAT Arterial Blood Gas pCO2 66 mmHg (35-46); iSTAT Arterial Blood Gas pH 7.36 (7.35-7.45); iSTAT Arterial Blood Gas pO2 34 mmHg (80-95); iSTAT Carbon Dioxide 39 mmol/L (24-31)
--- NOTE | 2021-08-13 13:57 | Discharge Summary ---
Date of Service August 13, 2021 Admission HPI Per Admitting Provider Beatriz Bentley is a 70 year old female who presents to the ER on the advice of her PCP due to shortness of breath. She reports progressively worsening symptoms especially on exertion for the last 8 months (prior to having COVID-19 vaccine) with associated fatigue. 4 days ago she started having a diarrheal illness with nausea, no abdominal pain with associated progression of her short of breath on exertion. She denies any weight gain, orthopnea, PND, worsening leg swelling or claudication. She is a non-smoker. On visiting her PCP today she was noted to be significantly hypoxic therefore was referred to the ER for ongoing management. In the ER CXR was consistent with viral pneumonia. SARS-COV-2 PCR negative. Principal Diagnosis Multifactorial hypoxia Discharge Exam In general she is awake and alert pleasant no distress. HEENT normocephalic atraumatic mucous membranes moist. Breathing unlabored no accessory muscle use good effort. Skin shows no rashes no pallor or icterus. Neuro without focal deficits. She is still on 2 L nasal cannula. Notes that she dropped to 78% in the [place] [employer] whenever her oxygen was transiently taken off. Discharge Data Allergies Allergy/AdvReac Type Severity Reaction Status Date / Time epinephrine AdvReac Rash Verified 08/10/21 14:38 Penicillins AdvReac Fever Verified 08/10/21 14:38 Sulfa (Sulfonamide AdvReac Rash Verified 08/10/21 14:38 Antibiotics) Codeine SULFATE AdvReac NIGHTMARES Uncoded 08/10/21 14:38 Consultations 08/10/21 12:59 ED Decision to Admit Stat 08/10/21 21:39 Consult Cardiology Routine 08/11/21 09:13 Consult Pulmonology Routine Procedures Performed Operation Date: 08/13/21 11:00 Actual Procedures s Cineradiography w/Routine Exam - Henrry Padilla MD p Cath, Right and Left Heart - Henrry Padilla MD Ordered Studies 08/10/21 12:59 CT angio chest PE protocol Stat 08/13/21 06:41 CL Cath Imgs for PACS use only Routine Hospital Course (1) Pulmonary edema: After further review acute systolic CHF present on admissionimproved with IV Lasix. Nonischemic cardiomyopathysuspect, or at least would pursue, that the etiology underlying her interstitial lung disease and her dilated cardiomyopathy may be 1 and the same. Ongoing outpatient work-up and follow-up for this starting with awaiting the labs sent by pulmonary on 08/11. Stable for homeCoreg and Entresto, basic metabolic panel next week. Symptom triggered Lasixshe is very astute and seems to understand the situation quite well, but did discuss that at least initially, I would want her having physician guidance for any/all symptom triggered Lasix episodes, but she does not appear like she will need chronic Lasix. Outpatient follow-up with PCP and cardiology (2) ILD (interstitial lung disease): Work-up pending, if this is negative, would consider reevaluation with PCP, and either rheumatology or immunology, given that it seems like there would likely be some underlying etiology that may explain both her cardiac and pulmonary findings, before simply calling both idiopathic. For now no specific treatment other than maintaining adequate oxygenation. (3) Viral pneumonia: With hindsight was ruled out original appearance of this turned out to be interstitial lung disease and pulmonary edema. (4) Hypoxia: See above (5) Acid reflux: Continue PPI (6) T2DM (type 2 diabetes mellitus): A1c 7.1. Sugars reasonable (7) Dyslipidemia: Continue atorvastatin 20mg PO HS (8) Hypertension: Blood pressures have overall been reasonable (9) Abnormal EKG: Heart cath negative for coronary disease VTE Prophyalxis - Lovenox 40mg SQ daily utilized while here Total Time Total Time Spent Total Time Spent (In Minutes): >30 Discharge Plan Discharge Items Patient Disposition: Home - Self-Care Reason For Visit: HYPOXIA, CHF Discharge Diagnosis: Hypoxiamultiple causes between heart and lungsee below Condition on Discharge: Good Activity: Resume your previous activity Non-emergency contact: Primary Care Provider and Lime Sludge Mixer Call non-emergency contact if: you have any medication questions Follow-up/Referrals: Tiffanie Albarado DO [Primary Care Provider] - Diet: Low Sodium (2gm) Addtl Attending Provider Instructions: pulmonary disease -As we discussed, it appears you have had some sort of chronic underlying lung disease for quite a while. This has slowly progressed over time. Pulmonary has sent many labs looking for autoimmune/inflammatory conditions that might be driving the lung disease, and at the same time it might be what is called idiopathic pulmonary fibrosis. Getting to the bottom of this will play out over the coming weeks, with follow-up with your primary care doctor, pulmonary, and possibly input from rheumatology or immunologydepending on how the labs return/etc. -In the meantime, the main management is simply controlling your shortness of breathand as we discussed, it really appears that most of the new shortness of breath was related to the fluid backed up into your lungs Cardiomyopathy -Cardiomyopathy means that your heart has gotten weaker. It seems most likely that it's going to relate to the same process that has caused the lung disease, given that you don't have any coronary blockages to account for the weaker heart - -We will be doing medication to take strain off of your heart and help keep fluid moving forward - we'll try to get entresto covered as it works very well....but sometimes it can be expensive so if it's too expensive then having your regular doctors continue to adjust the dosing of the coreg and losartan you're already on should do well ---coreg (carvedilol) is a beta ashly medication that reduces heart rate and relaxes the heart muscle - this helps take strain off your heart by having it not have to work as hard. additionally, it dilates blood vessels a little so there's less resistance/back pressure on your heart ---losartan or entresto - both are designed to do what is called "afterload reduction" - meaning that if each heart beat was a dumbell curl, these types of meds would take a 50lb dumbell and reduce it to 20. entresto tends to do a better job - it's two medicines -- one that is very similar to the losartan (valsartan) in reducing backpressure of bloodflow from the kidneys, and one (sacubatril) that basically acts to prevent inappropriate fluid retention at the kidneys. that said, if the entresto is $500/month and the losartan is $4, while the entresto is better, it's not so much better as to be worth going broke. (and if it's too expensive right now, typically over time these meds get more and more affordable, so it's worth revisiting every 6-12 months)(we've also given a coupon card that might help with cost) -Diuretics (furosemide typically) do play a role, but between medications to take strain off of your heart and keep blood flowing forward, and restricting sodium to prevent excess fluid retention, we try to minimize how much diuretic he need to be onbecause they are a bit of a "double edged sword" where they do a nice job of moving the fluid to keep it out of your lungs, but at the same time certainly can also cause dehydration -- for now we'll send a prescription for lasix (furosemide) - but with the idea that hopefully you'll only need it on a symptomatic basis (meaning that you start to show fluid retention/fluid in your lungs and then Dr Albarado or Dr Padilla give you directions (sometimes in pe rson, sometimes by phone - depending on the individual situation) to take the lasix (furosemide) for a short time/follow up/etc -the main side effects to watch for with all of these approaches to take strain off your heart is causing low blood pressure and/or dehydration - to that end, the symptoms we have you watch for are things like feeling weak/fatigued, lightheaded/dizzy, and we usually prefer you to get follow up lab work (BMP) about a week after starting (and then periodically thereafter) ------if the entresto is covered - there's a bit of a "dance" transitioning from medications like losartan to the entresto - so if you do start on the entresto -- stop taking the losartan tomorrow, and start the entresto friday night (08/15 evening dose) Below are my "generic" instructions discussing congestive heart failure, wet/dry, sodium restriction, and other hopefully useful tips to help keep yourself functioning/breathing as best as possible. Please note, I really dislikes the term congestive heart failure, as it implies something way more ominoustypically what it actually means medically is just what we have been talking aboutthat your heart muscle is weak, and that makes you more prone to fluid backing up into your lungs. Congestive Heart Failure: Discharge Instructions Congestive Heart Failure essentially means your heart is able to have a "traffic jam" of fluid that backs up into your lungs. Fluid in lungs then blocks up breathing space making you feel short of breath. In the hospital, our job is to get the fluid off so that you are able to breathe better, and then get you back on track with medication and lifestyle adjustments to keep the traffic jam from happening again. Salt (Sodium) The vast majority of people admitted to the hospital with fluid back up into the lungs get there because of too much salt in their diet. The way our kidneys work: when you take a small amount of sodium, your kidneys hold onto a small amount of water. When you take a large amount of sodium, your kidneys hold onto a large amount of water. When this happens, your blood vessels get flooded, your heart gets overfilled, and the fluid backs up into your lungs. Most people know to avoid the salt shaker, but sodium is in almost anything prepackaged/prepared, as a preservative or as a flavoring agent. Most of the people we take care of who are here with congestive heart failure caused by too much sodium do not use a salt shaker at all. Get into the habit of looking at food labels, so you can see how much sodium is in the foods you eat. The most important number to look at is how much sodium is in each serving. But also notice the size of a serving. Food [employer] will frequently make a serving size so tiny that it does not look like there is much sodium per serving, but a normal person might eat 3 or 4 servings of the food and take in a lot more sodium than they realized. Keep a "budget" of how much sodium you take in in each day. Most people stay o ut of trouble and stay out of the hospital as long as they stay "under budget". The majority of congestive heart failure patients do well if they take less than 2000 mg of sodium a day. Because our kidneys retain water based on how much sodium they are seeing in any given moment, it is also important to stay at less than about 500 mg in any given meal. This is because even if you stayed at less than 2000 mg of sodium, but ate it all at once, your kidneys would retain fluid at a rate as though you are taking in much more sodium than you actually are. Occasionally your doctor may specifically recommend restricting even further (such as less than 1500mg per day) so if you have been told to be even stricter with sodium, please follow that advice. -Following How You Are Doing (Wet Versus Dry) Because managing congestive heart failure is an ongoing process, it is very important to learn how to follow your signs and symptoms and track how you are doing at home. This will allow you to catch problems before they become a big deal. In general, as your health care team, we look at managing congestive heart failure chronically as a balance of being "wet" (flooded with fluid) versus being "dry" (dehydrated from treatment). Wet - signs of fluid retention that would warrant further evaluation: Check your weight daily. If your weight goes up by more than 2 pounds in 1 day, it is almost certainly fluid related. This should warrant further thought, and/or a call to your doctor Follow your breathingmost of the time, early on when fluid backs up into your lungs, you will first start to notice shortness of breath when walking, or when lying flat. If you notice either of these, this should warrant further thought, and/or a call to your doctor If you notice both an increase in weight and worsening breathing, that definitely warrants getting seen as soon as possible "Dry"while the goal of managing the disease is to keep you from getting "wet, the medications can sometimes cause a degree of dehydration. Most people with congestive heart failure need frequent lab work (basic metabolic panel). Generally when there has been a change in diuretic dosing (a change in the water pill) or any other major changes, lab work should be followed closely and more frequently afterwards. This is because lab work will frequently show early signs of dehydration before you start to feel bad. Frequent symptoms of being dehydrated include: feeling weak and lightheaded, having lower blood pressures, making less urine than usual, or having a very dry mouth. If you notice any of these signs/symptoms, and you are not due for lab work, it would be quite reasonable to call your doctor to see if lab work or a visit could be arranged. Heart Failure Management Checklist: Limit Salt (Sodium) Intake to 2000mg (2g) per day and 500mg (0.5g) per meal Check weight daily (in same clothes, without shoes) every morning Use the provided chart to enter your weight and salt intake for the day Are you too wet? If you gained 2lb or more - make sure to take your water pill If your breathing is not good (you are more short of breath than usual) call your doctor regardless of weight change If you gained 2lb or more and you are short of breath, see your doctor or come to the emergency room Are you too dry? If you feel weak or lightheaded, have lower blood pressures, make less urine than usual, or have a very dry mouth. Call your doctor Pending Studies at Discharge: Yes (Autoimmune/allergic/inflammatory serologies) Stand-Alone Forms: My [facility], Smoking Cessation Medications and DC Order Prescriptions: New carvedilol 3.125 mg Tablet 3.125 mg PO BID Qty: 60 RF: 0 Entresto 24-26 mg tablet 1 tab PO BID Qty: 60 RF: 0 furosemide 20 mg tablet 20 mg PO UD Qty: 14 RF: 0 Continued Fluzone HighDose Quad 21-22 PF 240 mcg/0.7 mL syringe 0.7 ml IM ONCE Qty: 0.7 RF: 0 atorvastatin 20 mg tablet 20 mg PO QPM RF: 0 paroxetine HCl 20 mg tablet 20 mg PO QPM RF: 0 omeprazole 20 mg capsule,delayed release(DR/EC) 20 mg PO QPM RF: 0 Discontinued losartan 50 mg tablet 50 mg PO QPM RF: 0 hydrochlorothiazide 12.5 mg capsule 12.5 mg PO QPM RF: 0 Discharge Orders: Discharge Order (Routine); Ordered 08/13/21 Ordered By: Venkatesh Beavers/Other Patient Handouts: High Blood Sugar (Hyperglycemia), Exercise: Why Fitness Matters, Diabetes: Meal Planning, Type 2 Diabetes Admission Data Admit Date/Time: 08/10/21 14:33 Attending Provider: Venkatesh Olivo Admit Provider: Joon Clark Primary Care Provider: Tiffanie Albarado Other Providers: Franco Hadley ; Joon Clark ; Carlos Eduardo Guevara Coding Level of Care Code D/C DAY MANAGEMENT >30 MINS Diagnoses Pulmonary edema J81.0 Chronicity: acute Viral pneumonia J12.9 Hypoxia R09.02 Acid reflux K21.9 T2DM (type 2 diabetes mellitus) E11.9 Dyslipidemia E78.5 Hypertension I10 Hypertension type: primary hypertension Abnormal EKG R94.31 ILD (interstitial lung disease) J84.9
[2021-08-19 23:36] LABS: Alternaria Alternata IgG 11.4 mcg/mL (<13.6); Angiotensin Converting Enzyme 32 U/L (9-67); Anti Cardiolipin Ab IgG <2.0 GPL-U/mL; Anti Cardiolipin Ab IgM <2.0 MPL-U/mL; Anti Nuclear Antibody Screen NEGATIVE (NEGATIVE); Anti-Cardiolipin Ab IgA <2.0 APL-U/mL; Anti-Centromere Ab <1.0 NEG AI (<1.0 NEG); Anti-SS-A <1.0 NEG AI (<1.0 NEG); Anti-SS-B <1.0 NEG AI (<1.0 NEG); Aureobasidium pullulans IgG 11.9 mcg/mL (<13.6); Chromatin Antibody <1.0 NEG AI (<1.0 NEG); Complement C3 129 mg/dL (83-193); Cyclic Citrullinated Pep IgG <16 UNITS; DNA ds Crithidia NEGATIVE (NEGATIVE); JO 1 Antibody <1.0 NEG AI (<1.0 NEG); Microsomal Ab 24 IU/mL (<9); RNP Antibody <1.0 NEG AI (<1.0 NEG); Rheumatoid Factor <14 IU/mL (<14); Saccharopolyspora rectivir Ab NOT DETECTED (NOT DETECTED); Scleroderma Anti Scl-70 Ab <1.0 NEG AI (<1.0 NEG); Sm Antibody <1.0 NEG AI (<1.0 NEG); Thermoactinomyces candidus Ab NOT DETECTED (NOT DETECTED); Thermoactinomyces sacchari Ab NOT DETECTED (NOT DETECTED)
== END 2021-08-13 18:24 | disposition home or self-care (01) | DRG 286 ==
LOC: ED 10:32 → SUATTDRO 14:33 → 2N 14:33 → 2S 08-13 12:25